=== PATIENT | female | born 1940 | race Caucasian/White ===

== ENCOUNTER 2017-05-14 18:44 | Inpatient (IN) | payer MEDICARE ==
[~2017-05-14] VITALS: Ht 165.1 cm; Wt 67.5 kg
[~2017-05-14 18:44] MED LIST: AMLO2.5T PO; DICL50TA3 PO; IBUP-1129; LEVO112T2 PO; LOSA100T PO; MULTTAB67 PO; NEUR400C PO; PANT40TA3 PO; TYLE325T PO; VITA500T4 PO
[2017-05-14] MEDS ORDERED: IOHEXOL 350 MG/ML 10 ML VIAL (for RAD DIAG) IVCONTRAST ONE (18:45)
[2017-05-14 18:46] VITALS: BP 136/69; PULSE 87; RESP 18; TEMP 98.7; O2SAT 99
[2017-05-14] MEDS ORDERED: SODIUM CHLOR 0.9% 1000 ML INJ 1,000 ML IV SCH (19:16)
--- NOTE | 2017-05-14 19:20 | PD ---
HPI Chief Complaint: Abdominal Pain Time Seen by Provider: 19:08 Travel History International Travel<30 days: No Contact w/Intl Traveler<30days: No Traveled to known affect area: No History of Present Illness HPI 76-year-old female here for evaluation of abdominal pain. The patient reports frequent episodes of abdominal pain over the last several days. When she woke up this morning she had severe diffuse abdominal pain that is now located mainly on her right upper and right lower abdomen. She is unable to qualify the pain, and states that it is currently 7 out of 10, constant, worse with movement and palpation. She denies nausea or vomiting. She has had some loose bowel movements have been brown, no melena or hematochezia. She denies fevers or chills. No history of abdominal surgeries. No urinary symptoms. No chest pain. PFSH Past Medical History ?: Not Social History Tobacco Use: No Allergies-Medications (Allergen,Severity, Reaction): Coded Allergies: Sulfa (Sulfonamide Antibiotics) (Verified Allergy, Severe, HIVES, 05/14/17 ) Reported Meds & Prescriptions Reported Meds & Active Scripts Active Neurontin (Gabapentin) 400 Mg Cap 400 Mg PO TID Reported Multiple Vitamin 1 Tab 1 Tab PO DAILY Motrin Ib (Ibuprofen) 200 Mg Tablet Tylenol (Acetaminophen) 325 Mg Tab 650 Mg PO Q6H PRN Vitamin B-12 (Cyanocobalamin) 500 Mcg Tab 500 Mcg PO BID Levothyroxine (Levothyroxine Sodium) 112 Mcg Tab 112 Mcg PO DAILY Losartan (Losartan Potassium) 100 Mg Tab 100 Mg PO DAILY Diclofenac Sodium DR (Diclofenac Sodium) 50 Mg Tabdr 50 Mg PO BID Pantoprazole (Pantoprazole Sodium) 40 Mg Tab 40 Mg PO DAILY Amlodipine (Amlodipine Besylate) 2.5 Mg Tab 2.5 Mg PO DAILY Review of Systems Except as stated in HPI: all other systems reviewed are Neg Physical Exam Narrative GENERAL: Well-developed, well-nourished, pleasant, no apparent distress. SKIN: Focused skin assessment warm/dry. No rash. HEAD: Atraumatic. Normocephalic. EYES: Pupils equal and round. No scleral icterus. No injection or drainage. ENT: Mucous membranes pink and moist. NECK: Trachea midline. No JVD. CARDIOVASCULAR: Regular rate and rhythm. RESPIRATORY: No accessory muscle use. Clear to auscultation. Breath sounds equal bilaterally. GASTROINTESTINAL: Abdomen soft, nondistended. On her right upper quadrant tenderness with Mcdonald sign. There is also moderate right lower quadrant tenderness. The rest of her abdomen is mildly tender. No peritoneal signs. Normal bowel sounds. No hernias. MUSCULOSKELETAL: No obvious deformities. No clubbing. No cyanosis. No edema. Mild right CVA tenderness. No left CVA tenderness. NEUROLOGICAL: Awake and alert. No obvious cranial nerve deficits. Motor grossly within normal limits. Normal speech. PSYCHIATRIC: Appropriate mood and affect; insight and judgment normal. Data Data Last Documented VS Vital Signs Date Time Temp Pulse Resp B/P (MAP) Pulse Ox O2 Delivery O2 Flow Rate FiO2 05/14/17 19:41 16 97 Room Air 05/14/17 18:46 98.7 87 Orders Orders Complete Blood Count With Diff (05/14/17 19:16) Comprehensive Metabolic Panel (05/14/17 19:16) Lipase (05/14/17 19:16) Lactic Acid (05/14/17 19:16) Prothrombin Time / Inr (Pt) (05/14/17 19:16) Act Partial Throm Time (Ptt) (05/14/17 19:16) Urinalysis - C+S If Indicated (05/14/17 19:16) Ct Abd/Pel W Iv Contrast(Rout) (05/14/17 19:16) Iv Access Insert/Monitor (05/14/17 19:16) Ecg Monitoring (05/14/17 19:16) Oximetry (05/14/17 19:16) Morphine Inj (Morphine Inj) (05/14/17 19:30) Ondansetron Inj (Zofran Inj) (05/14/17 19:30) Sodium Chlor 0.9% 1000 Ml Inj (Ns 1000 M (05/14/17 19:16) Sodium Chloride 0.9% Flush (Ns Flush) (05/14/17 19:30) Electrocardiogram (05/14/17 19:16) Chest, Single Ap (05/14/17 ) Oral Contrast - Adult (05/14/17 19:29) Diatrizoate Liq ( Gastroobdulio Liq) (05/14/17 19:42) Morphine Inj (Morphine Inj) (05/14/17 20:45) Iohexol 350 Inj (Omnipaque 350 Inj) (05/14/17 18:45) Piperacil-Tazo 4.5 Gm Premix (Zosyn 4.5 (05/14/17 22:00) Consult General Surgery (05/14/17 ) Admit Order (Ed Use Only) (05/14/17 22:11) Labs Laboratory Tests Test 05/14/17 19:18 05/14/17 19:27 Urine Color LIGHT-YELLOW Urine Turbidity CLEAR Urine pH 7.0 Urine Specific [place] 1.006 Urine Protein NEG mg/dL Urine Glucose (UA) NEG mg/dL Urine Ketones NEG mg/dL Urine Occult Blood NEG Urine Nitrite NEG Urine Bilirubin NEG Urine Urobilinogen LESS THAN 2.0 MG/DL Urine Leukocyte Esterase NEG Urine WBC LESS THAN 1 /hpf Microscopic Urinalysis Comment CULT NOT INDICATED White Blood Count 11.4 TH/MM3 Red Blood Count 3.92 MIL/MM3 Hemoglobin 13.0 GM/DL Hematocrit 38.6 % Mean Corpuscular Volume 98.5 FL Mean Corpuscular Hemoglobin 33.3 PG Mean Corpuscular Hemoglobin Concent 33.8 % Red Cell Distribution Width 12.9 % Platelet Count 227 TH/MM3 Mean Platelet Volume 7.8 FL Neutrophils (%) (Auto) 85.5 % Lymphocytes (%) (Auto) 7.5 % Monocytes (%) (Auto) 6.6 % Eosinophils (%) (Auto) 0.2 % Basophils (%) (Auto) 0.2 % Neutrophils # (Auto) 9.7 TH/MM3 Lymphocytes # (Auto) 0.9 TH/MM3 Monocytes # (Auto) 0.7 TH/MM3 Eosinophils # (Auto) 0.0 TH/MM3 Basophils # (Auto) 0.0 TH/MM3 CBC Comment DIFF FINAL Differential Comment Prothrombin Time 10.8 SEC Prothromb Time International Ratio 1.0 RATIO Activated Partial Thromboplast Time 25.8 SEC Blood Urea Nitrogen 11 MG/DL Creatinine 0.78 MG/DL Random Glucose 110 MG/DL Total Protein 7.3 GM/DL Albumin 3.9 GM/DL Calcium Level 9.7 MG/DL Alkaline Phosphatase 53 U/L Aspartate Amino Transf (AST/SGOT) 17 U/L Alanine Aminotransferase (ALT/SGPT) 19 U/L Total Bilirubin 1.1 MG/DL Sodium Level 133 MEQ/L Potassium Level 3.8 MEQ/L Chloride Level 100 MEQ/L Carbon Dioxide Level 26.3 MEQ/L Anion Gap 7 MEQ/L Estimat Glomerular Filtration Rate 72 ML/MIN Lactic Acid Level 0.8 mmol/L Lipase 151 U/L MDM Medical Decision Making Medical Screen Exam Complete: Yes Emergency Medical Condition: Yes Interpretation(s) EKG: Sinus, rate 81, normal axis, normal intervals, no acute ischemic abnormality. Differential Diagnosis Cholecystitis, cholelithiasis, nephrolithiasis, pyelonephritis, ureterolithiasis , colitis, appendicitis, UTI, cystitis, mesenteric ischemia Narrative Course Initial vital signs show heart rate 87, blood pressure 136/69, pulse ox 99% on room air, oral temp of 98.7F. CBC: WBC 11.4, hemoglobin 13, hematocrit 38.6, platelets 227, neutrophils 85.5%. CMP is essentially unremarkable. Lactic acid is 0.8. UA is not suggestive of UTI. CT abdomen pelvis: CONCLUSION: Inflamed appearance of right lower quadrant bowel structures and surrounding tissues with differential considerations primarily include ileitis, IBD or appendicitis. Mild intra-extrahepatic biliary ductal dilatation and moderate gallbladder distention. No specific etiology identified Case discussed with on-call general surgeon Dr. Silva. He will like the patient to be started on IV antibiotics and admitted to the medical service. He will see the patient in consultation in the morning. He would like the patient to be NPO after midnight. Case discussed with hospitalist Dr. Gore who will admit the patient to her service. The patient and the patient's family were made aware of all findings and plan for admission with surgical consultation. Diagnosis Primary Impression: Right lower quadrant abdominal pain Admitting Information Admitting Physician Requests: Observation Raúl Sandoval MD May 14, 2017 19:20
[2017-05-14] MEDS ORDERED: MORPHINE SULFATE 4 MG/ML INJ IV PUSH ONE ×2 (19:30→20:45)
[2017-05-14] MEDS ORDERED: SODIUM CHLORIDE 0.9% FLUSH 10 ML FLUSH IV FLUSH PRN (19:30)
[2017-05-14] MEDS ORDERED: ONDANSETRON HCL 4 MG/2 ML VIAL IVP ONE (19:30)
[2017-05-14 19:40] LABS: AUTOMATED NEUTROPHIL # 9.7 TH/MM3 (1.8-7.7); BASOPHIL % 0.2 % (0.0-2.0); EOSINOPHIL % 0.2 % (0.0-4.0); HEMATOCRIT 38.6 % (35.0-46.0); HEMO FLAGS DIFF FINAL; LYMPH % 7.5 % (9.0-44.0); LYMPHOCYTE # 0.9 TH/MM3 (1.0-4.8); MEAN CELL VOLUME 98.5 FL (80.0-100.0); MEAN CORPUSCULAR HEMOGLOBIN 33.3 PG (27.0-34.0); MEAN CORPUSCULAR HGB CONC 33.8 % (32.0-36.0); MONO % 6.6 % (0.0-8.0); NEUT % 85.5 % (16.0-70.0); PLATELET COUNT 227 TH/MM3 (150-450); RED BLOOD COUNT 3.92 MIL/MM3 (4.00-5.30); RED CELL DISTRIBUTION WIDTH 12.9 % (11.6-17.2); WHITE BLOOD COUNT 11.4 TH/MM3 (4.0-11.0)
[2017-05-14 19:41] VITALS: RESP 16; O2SAT 97
[2017-05-14] MEDS ORDERED: DIATRIZOATE MEGLUM/DIATRIZOATE SOD 9 ML CUP ONE (19:42)
[2017-05-14 19:44] LABS: BLOOD, URINE NEG (NEG); GLUCOSE,URINE NEG (NEG); KETONE, URINE NEG (NEG); NITRITE,URINE NEG (NEG); URINE COLOR LIGHT-YELLOW (YELLW/STRAW)
[2017-05-14 19:49] LABS: APTT (PATIENT) 25.8 SEC (24.3-30.1); PROTHROMBIN TIME - PATIENT 10.8 SEC (9.8-11.6)
[2017-05-14 19:51] LABS: COMMENT (UR) CULT NOT INDICATED; CULTURE IF INDICATED CULT NOT INDICATED
[2017-05-14 20:11] LABS: ANION GAP 7 MEQ/L (5-15); BICARBONATE 26.3 MEQ/L (21.0-32.0); BLOOD UREA NITROGEN 11 MG/DL (7-18); CHLORIDE 100 MEQ/L (98-107); GLOMERULAR FILTRATION RATE 72 ML/MIN (>89); POTASSIUM 3.8 MEQ/L (3.5-5.1); SODIUM (NA) 133 MEQ/L (136-145)
[2017-05-14 20:13] LABS: ALT (GPT) 19 U/L (10-53); AST (GOT) 17 U/L (15-37)
[2017-05-14 20:15] LABS: ALKALINE PHOSPHATASE 53 U/L (45-117); TOTAL BILIRUBIN ADULT 1.1 MG/DL (0.2-1.0)
--- NOTE | 2017-05-14 21:25 | RADRPT ---
EXAM DATE/TIME: 05/14/2017 19:37 [facility] COMPARISON: No previous studies available for comparison. INDICATIONS : Chest pain and shortness of breath. MEDICAL HISTORY : None. SURGICAL HISTORY : None. ENCOUNTER: Initial ACUITY: 2 days PAIN SCORE: 10/10 LOCATION: Right chest FINDINGS: A single view of the chest demonstrates the lungs to be symmetrically aerated without evidence of mas s, infiltrate or effusion. The cardiomediastinal contours are unremarkable. Osseous structures are intact. CONCLUSION: No acute disease. Damaso Ragsdale MD on May 14, 2017 at 21:23 Board Certified Radiologist. This report was verified electronically.
--- NOTE | 2017-05-14 21:51 | RADRPT ---
EXAM DATE/TIME: 05/14/2017 20:42 This report includes an Addendum and supersedes previous reports for this exam. [facility] COMPARISON: No previous studies available for comparison. INDICATIONS : Right sided abdomen pain. IV CONTRAST: 95 cc Omnipaque 350 (iohexol) IV ORAL CONTRAST: No oral contrast ingested. RADIATION DOSE: 5.53 CTDIvol (mGy) MEDICAL HISTORY : Hypertension. Gastroesophageal reflux disease. SURGICAL HISTORY : None. ENCOUNTER: Initial ACUITY: 1 day PAIN SCALE: 7/10 LOCATION: Right abdomen TECHNIQUE: Volumetric scanning of the abdomen and pelvis was performed. Using automated exposure control and ad justment of the mA and/or kV according to patient size, radiation dose was kept as low as reasonably achievable to obtain optimal diagnostic quality images. DICOM format image data is available electro nically for review and comparison. FINDINGS: LOWER LUNGS: Mild basilar atelectasis LIVER: Mild intra-and extrahepatic biliary ductal dilatation. Pancreatic duct is prominent. Mild dilatation continues down to the level of the ampulla. No definite mass is identified. No definite filling defec t is identified. The gallbladder is moderately distended. There are tiny dependent stones in the gall bladder fundus. No definite gallbladder wall thickening. There is no focal liver mass identified. SPLEEN: Cyst in the anterior aspect of the spleen. PANCREAS: Mildly dilated duct throughout. No definite mass. KIDNEYS: Normal in size and shape. There is no mass, stone or hydronephrosis. ADRENAL GLANDS: Within normal limits. VASCULAR: Circumaortic renal vein on the left. No evidence of aortic aneurysm or major vessel occlusion. BOWEL/MESENTERY: Abnormal increased mucosal enhancement and induration surrounding bowel structures in the right lower quadrant, appearing to mainly involve distal ileal loops. Involvement of the appendix in this region is not excluded. The appearance is nonspecific as to appendicitis versus ileitis or IBD. No definite evidence of abscess, perforation or obstruction at present. ABDOMINAL WALL: Within normal limits. RETROPERITONEUM: There is no lymphadenopathy. BLADDER: No wall thickening or mass. REPRODUCTIVE: Within normal limits. INGUINAL: There is no lymphadenopathy or hernia. MUSCULOSKELETAL: Nothing acute CONCLUSION: Inflamed appearance of right lower quadrant bowel structures and surrounding tissues with differentia l considerations primarily include ileitis, IBD or appendicitis. Mild intra-extrahepatic biliary ductal dilatation and moderate gallbladder distention. No specific et iology identified Damaso Ragsdale MD on May 14, 2017 at 21:39 Board Certified Radiologist. This report was verified electronically. ADDENDUM: Delayed imaging was obtained. The inflammatory structure in the right lower quadrant appear s to be confined to the ileum. There is residual contrast within a tubular structure believed to be t he appendix and not involved with inflammatory process. Sal Morton MD on May 15, 2017 at 1:23 Board Certified Radiologist. This report was verified electronically.
[2017-05-14] MEDS ORDERED: PIPERACIL-TAZO 4.5 GM PREMIX 100 ML IV ONE (22:00)
[2017-05-14] MEDS ORDERED: SENNOSIDES 8.6 MG TAB PO PRN (22:15)
[2017-05-14] MEDS ORDERED: BISACODYL 10 MG SUPP RECTAL PRN (22:15)
[2017-05-14] MEDS ORDERED: LACTULOSE SYRUP 20 GM/30 ML CUP PO PRN (22:15)
[2017-05-14] MEDS ORDERED: ACETAMINOPHEN 325 MG TAB PO PRN (22:15)
[2017-05-14] MEDS ORDERED: MAGNESIUM HYDROXIDE SUSP 30 ML CUP PO PRN (22:15)
--- NOTE | 2017-05-14 22:15 | HHI.HP ---
[facility] Service [facility] Primary Care Physician CORY Alexander Admission Diagnosis abdominal pain rule out appendicitis Diagnoses: Travel History International Travel<30 Days: No Contact w/Intl Traveler <30 Da: No Traveled to Known Affected Are: No Past Family Social History Allergies: Coded Allergies: Sulfa (Sulfonamide Antibiotics) (Verified Allergy, Severe, HIVES, 05/14/17 ) Physical Exam Vital Signs Vital Signs Date Time Temp Pulse Resp B/P (MAP) Pulse Ox O2 Delivery O2 Flow Rate FiO2 05/14/17 19:41 16 97 Room Air 05/14/17 18:46 98.7 87 18 136/69 (91) 99 Room Air Physical Exam GENERAL: This is a well-nourished, well-developed patient, in no apparent distress. SKIN: No rashes, ecchymoses or lesions. Cool and dry. HEAD: Atraumatic. Normocephalic. No temporal or scalp tenderness. EYES: Pupils equal round and reactive. Extraocular motions intact. No scleral icterus. No injection or drainage. ENT: Nose without bleeding, purulent drainage or septal hematoma. Throat without erythema, tonsillar hypertrophy or exudate. Uvula midline. Airway patent. NECK: Trachea midline. No JVD or lymphadenopathy. Supple, nontender, no meningeal signs. CARDIOVASCULAR: Regular rate and rhythm without murmurs, gallops, or rubs. RESPIRATORY: Clear to auscultation. Breath sounds equal bilaterally. No wheezes , rales, or rhonchi. GASTROINTESTINAL: Abdomen soft, non-tender, nondistended. No hepato-splenomegaly , or palpable masses. No guarding. MUSCULOSKELETAL: Extremities without clubbing, cyanosis, or edema. No joint tenderness, effusion, or edema noted. No calf tenderness. Negative Homans sign bilaterally. NEUROLOGICAL: Awake and alert. Cranial nerves II through XII intact. Motor and sensory grossly within normal limits. Five out of 5 muscle strength in all muscle groups. Normal speech. Laboratory Laboratory Tests Test 05/14/17 19:18 05/14/17 19:27 Urine Color LIGHT-YELLOW Urine Turbidity CLEAR Urine pH 7.0 Urine Specific [place] 1.006 Urine Protein NEG Urine Glucose (UA) NEG Urine Ketones NEG Urine Occult Blood NEG Urine Nitrite NEG Urine Bilirubin NEG Urine Urobilinogen LESS THAN 2.0 Urine Leukocyte Esterase NEG Urine WBC LESS THAN 1 Microscopic Urinalysis Comment CULT NOT INDICATED White Blood Count 11.4 Red Blood Count 3.92 Hemoglobin 13.0 Hematocrit 38.6 Mean Corpuscular Volume 98.5 Mean Corpuscular Hemoglobin 33.3 Mean Corpuscular Hemoglobin Concent 33.8 Red Cell Distribution Width 12.9 Platelet Count 227 Mean Platelet Volume 7.8 Neutrophils (%) (Auto) 85.5 Lymphocytes (%) (Auto) 7.5 Monocytes (%) (Auto) 6.6 Eosinophils (%) (Auto) 0.2 Basophils (%) (Auto) 0.2 Neutrophils # (Auto) 9.7 Lymphocytes # (Auto) 0.9 Monocytes # (Auto) 0.7 Eosinophils # (Auto) 0.0 Basophils # (Auto) 0.0 CBC Comment DIFF FINAL Differential Comment Prothrombin Time 10.8 Prothromb Time International Ratio 1.0 Activated Partial Thromboplast Time 25.8 Blood Urea Nitrogen 11 Creatinine 0.78 Random Glucose 110 Total Protein 7.3 Albumin 3.9 Calcium Level 9.7 Alkaline Phosphatase 53 Aspartate Amino Transf (AST/SGOT) 17 Alanine Aminotransferase (ALT/SGPT) 19 Total Bilirubin 1.1 Sodium Level 133 Potassium Level 3.8 Chloride Level 100 Carbon Dioxide Level 26.3 Anion Gap 7 Estimat Glomerular Filtration Rate 72 Lactic Acid Level 0.8 Lipase 151 Result Diagram: 05/14/17192605/14/171926 Caprini VTE Risk Assessment Caprini Risk Assessment Model Point Value = 1 Point Value = 2 Point Value = 3 Point Value = 5 Age 41-60 Minor surgery BMI > 25 kg/m2 Swollen legs Varicose veins or History of unexplained or recurrent spontaneous Oral contraceptives or hormone replacement Sepsis (< 1 month) Serious lung disease, including pneumonia (< 1 month) Abnormal pulmonary function Acute myocardial infarction Congestive heart failure (< 1 month) History of inflammatory bowel disease Medical patient at bed rest Age 61-74 Arthroscopic surgery Major open surgery (> 45 min) Laparoscopic surgery (> 45 min) Malignancy Confined to bed (> 72 hours) Immobilizing plaster cast Central venous access Age >= 75 History of VTE Family history of VTE Factor V Leiden Prothrombin [id number] Lupus anticoagulant Anticardiolipin antibodies Elevated serum homocysteine Heparin-induced thrombocytopenia Other congenital or acquired thrombophilia Stroke (< 1 month) Elective arthroplasty Hip, pelvis, or leg fracture Acute spinal cord injury (< 1 month) Prophylaxis Regimen Total Risk Factor Score Risk Level Prophylaxis Regimen 0-1 Low Early ambulation 2 Moderate Order ONE of the following: *Sequential Compression Device (SCD) *Heparin 5000 units SQ BID 3-4 Higher Order ONE of the following medications: *Heparin 5000 units SQ TID *Enoxaparin/Lovenox 40 mg SQ daily (WT < 150 kg, CrCl > 30 mL/min) *Enoxaparin/Lovenox 30 mg SQ daily (WT < 150 kg, CrCl > 10-29 mL/min) *Enoxaparin/Lovenox 30 mg SQ BID (WT < 150 kg, CrCl > 30 mL/min) AND/OR *Sequential Compression Device (SCD) 5 or more Highest Order ONE of the following medications: *Heparin 5000 units SQ TID (Preferred with Epidurals) *Enoxaparin/Lovenox 40 mg SQ daily (WT < 150 kg, CrCl > 30 mL/min) *Enoxaparin/Lovenox 30 mg SQ daily (WT < 150 kg, CrCl > 10-29 mL/min) *Enoxaparin/Lovenox 30 mg SQ BID (WT < 150 kg, CrCl > 30 mL/min) AND *Sequential Compression Device (SCD) Physician Certification Order for Inpatient Services The services are ordered in accordance with Medicare regulations or non- Medicare payer requirements, as applicable. In the case of services not specified as inpatient-only, they are appropriately provided as inpatient services in accordance with the 2-midnight benchmark. days is the estimated time the patient will need to remain in the hospital, assuming treatment plan goals are met and no additional complications. Mary Jane Gore MD May 14, 2017 22:15
[2017-05-14 22:26] VITALS: BP 135/62; PULSE 89; RESP 18; O2SAT 98
--- NOTE | 2017-05-14 22:38 | HHI.HP ---
HPI Service [facility] Primary Care Physician CORY Alexander Admission Diagnosis abdominal pain rule out appendicitis Diagnoses: (1) Ileitis Diagnosis: Principal (2) Dehydration Diagnosis: Principal (3) HTN (hypertension) Diagnosis: Principal Travel History International Travel<30 Days: No Contact w/Intl Traveler <30 Da: No Traveled to Known Affected Are: No History of Present Illness This is a 76-year-old female with a PMH of HTN and Hypothyroidism was brought to the ER by family secondary to complaints of abdominal pain or any earlier this morning. States pain located in RUQ and RLQ, associated w/ nausea but no vomiting. Has had few episodes of diarrhea, now resolved. Pt severe w/ movement, ambulation very difficult due to pain. Denies fever or chills. On arrival, BP 136/69, HR 87, O2 sat 99% on RA, Afebrile. WBC 11.4. Chemistry unremarkable except for GFR 72. Lactic Acid normal. 0.0. CXR with no acute findings. CT Abd/Pelvis w/ inflamed appearance right lower quadrant bowel structures and surrounding tissue with differential including ileitis, IBD or appendicitis. Mild intra-and extrahepatic biliary ductal dilatation and moderate gallbladder distention. Dr. Silva consulted by ER physician, plan is for observation and IV Abx, will eval in am, no surgical intervention planned at this time. S/p Zosyn in ER. Review of Systems Except as stated in HPI: all other systems reviewed are Neg ROS: 14 point review of systems otherwise negative. Past Family Social History Past Medical History PMH: HTN and Hypothyroidism Past Surgical History PAST SURGICAL HISTORY: Left Shoulder Surgery Allergies: Coded Allergies: Sulfa (Sulfonamide Antibiotics) (Verified Allergy, Severe, HIVES, 05/14/17 ) Family History PAST FAMILY HISTORY: Reviewed. No h/o DM or CAD Social History PAST SOCIAL HISTORY: Negative for alcohol, tobacco or drugs. Physical Exam Vital Signs Vital Signs Date Time Temp Pulse Resp B/P (MAP) Pulse Ox O2 Delivery O2 Flow Rate FiO2 05/14/17 22:26 89 18 135/62 (86) 98 Room Air 05/14/17 19:41 16 97 Room Air 05/14/17 18:46 98.7 87 18 136/69 (91) 99 Room Air Physical Exam PE: GENERAL: Very pleasant elderly white female in no acute distress. Family at bedside. HEENT: PERRLA, EOMI. No scleral icterus or conjunctival pallor. No lid lag or facial droop. CARDIOVASCULAR: Regular rate and rhythm. No obvious murmurs to auscultation. No chest tenderness to palpation. RESPIRATORY: No obvious rhonchi or wheezing. Clear to auscultation. Breath sounds equal bilaterally. GASTROINTESTINAL: Abdomen soft, significant RLQ and RUQ tenderness to palpation , nondistended. BS normal. MUSCULOSKELETAL: Extremities without clubbing, cyanosis, or edema. No obvious deformities. NEUROLOGICAL: Awake, alert and oriented x4. No focal neurologic deficits. Moving both upper and lower extremities spontaneously. Laboratory Laboratory Tests Test 05/14/17 19:18 05/14/17 19:27 Urine Color LIGHT-YELLOW Urine Turbidity CLEAR Urine pH 7.0 Urine Specific [place] 1.006 Urine Protein NEG Urine Glucose (UA) NEG Urine Ketones NEG Urine Occult Blood NEG Urine Nitrite NEG Urine Bilirubin NEG Urine Urobilinogen LESS THAN 2.0 Urine Leukocyte Esterase NEG Urine WBC LESS THAN 1 Microscopic Urinalysis Comment CULT NOT INDICATED White Blood Count 11.4 Red Blood Count 3.92 Hemoglobin 13.0 Hematocrit 38.6 Mean Corpuscular Volume 98.5 Mean Corpuscular Hemoglobin 33.3 Mean Corpuscular Hemoglobin Concent 33.8 Red Cell Distribution Width 12.9 Platelet Count 227 Mean Platelet Volume 7.8 Neutrophils (%) (Auto) 85.5 Lymphocytes (%) (Auto) 7.5 Monocytes (%) (Auto) 6.6 Eosinophils (%) (Auto) 0.2 Basophils (%) (Auto) 0.2 Neutrophils # (Auto) 9.7 Lymphocytes # (Auto) 0.9 Monocytes # (Auto) 0.7 Eosinophils # (Auto) 0.0 Basophils # (Auto) 0.0 CBC Comment DIFF FINAL Differential Comment Prothrombin Time 10.8 Prothromb Time International Ratio 1.0 Activated Partial Thromboplast Time 25.8 Blood Urea Nitrogen 11 Creatinine 0.78 Random Glucose 110 Total Protein 7.3 Albumin 3.9 Calcium Level 9.7 Alkaline Phosphatase 53 Aspartate Amino Transf (AST/SGOT) 17 Alanine Aminotransferase (ALT/SGPT) 19 Total Bilirubin 1.1 Sodium Level 133 Potassium Level 3.8 Chloride Level 100 Carbon Dioxide Level 26.3 Anion Gap 7 Estimat Glomerular Filtration Rate 72 Lactic Acid Level 0.8 Lipase 151 Result Diagram: 05/14/17192605/14/171926 Rufus VTE Risk Assessment Rufus VTE Risk Assessment: No/Low Risk (score <= 1) Caprini Risk Assessment Model Point Value = 1 Point Value = 2 Point Value = 3 Point Value = 5 Age 41-60 Minor surgery BMI > 25 kg/m2 Swollen legs Varicose veins or History of unexplained or recurrent spontaneous Oral contraceptives or hormone replacement Sepsis (< 1 month) Serious lung disease, including pneumonia (< 1 month) Abnormal pulmonary function Acute myocardial infarction Congestive heart failure (< 1 month) History of inflammatory bowel disease Medical patient at bed rest Age 61-74 Arthroscopic surgery Major open surgery (> 45 min) Laparoscopic surgery (> 45 min) Malignancy Confined to bed (> 72 hours) Immobilizing plaster cast Central venous access Age >= 75 History of VTE Family history of VTE Factor V Leiden Prothrombin [id number] Lupus anticoagulant Anticardiolipin antibodies Elevated serum homocysteine Heparin-induced thrombocytopenia Other congenital or acquired thrombophilia Stroke (< 1 month) Elective arthroplasty Hip, pelvis, or leg fracture Acute spinal cord injury (< 1 month) Prophylaxis Regimen Total Risk Factor Score Risk Level Prophylaxis Regimen 0-1 Low Early ambulation 2 Moderate Order ONE of the following: *Sequential Compression Device (SCD) *Heparin 5000 units SQ BID 3-4 Higher Order ONE of the following medications: *Heparin 5000 units SQ TID *Enoxaparin/Lovenox 40 mg SQ daily (WT < 150 kg, CrCl > 30 mL/min) *Enoxaparin/Lovenox 30 mg SQ daily (WT < 150 kg, CrCl > 10-29 mL/min) *Enoxaparin/Lovenox 30 mg SQ BID (WT < 150 kg, CrCl > 30 mL/min) AND/OR *Sequential Compression Device (SCD) 5 or more Highest Order ONE of the following medications: *Heparin 5000 units SQ TID (Preferred with Epidurals) *Enoxaparin/Lovenox 40 mg SQ daily (WT < 150 kg, CrCl > 30 mL/min) *Enoxaparin/Lovenox 30 mg SQ daily (WT < 150 kg, CrCl > 10-29 mL/min) *Enoxaparin/Lovenox 30 mg SQ BID (WT < 150 kg, CrCl > 30 mL/min) AND *Sequential Compression Device (SCD) Assessment and Plan Problem List: (1) Ileitis ICD Code: K52.9 - Noninfective gastroenteritis and colitis, unspecified (2) Dehydration ICD Code: E86.0 - Dehydration (3) HTN (hypertension) ICD Code: I10 - Essential (primary) hypertension Assessment and Plan A/P: 1. Ileitis: c/o acute onset of RUQ and RLQ pain w/ associated nausea and occasional diarrhea, now resolved. Afebrile. WBC 11. CT Abd/Pelvis w/ inflammation RLQ w/ differential for ileitis, IBD or appendicitis, mild intra- extrahepatic biliary ductal dilation and moderate gallbladder distention, images reviewed by me. Dr. Silva consulted by ER physician, recommended IV Abx, will eval in am, no surgical intervention planned at this time. Clear liquids, IVF, analgesics/antiemetics as needed. S/p Zosyn, continue IV Abx. 2. Dehydration: GFR 72, BUN/Creat normal, U/a negative, IVF for hydration, repeat labs in am. 3. HTN: Controlled. Resume home medications, monitor BP 4. DVT Prophylaxis: SCD/Teds. 5. Social work for d/c planning as needed. 6. Case discussed w/ ER physician at length. Mary Jane Gore MD May 14, 2017 22:38
[2017-05-14] MEDS ORDERED: HYDROmorphone HCL PF 0.5 MG/0.5 ML SYRINGE IV PUSH ONE (22:45)
[2017-05-14] MEDS: SODIUM CHLORIDE 0.9% FLUSH 10 ML FLUSH IV FLUSH PRN (23:26)
[2017-05-14] MEDS: SODIUM CHLOR 0.9% 1000 ML INJ 1,000 ML IV SCH (23:26)
[2017-05-14 23:41] VITALS: BP 125/58; PULSE 88; RESP 17; TEMP 98.5; O2SAT 97
--- NOTE | 2017-05-15 00:13 | PD.CONS ---
HPI Service General Surgery Consult Requested By Dr. Sandoval Reason for Consult abdominal pain possible appendicitis Primary Care Physician CORY Alexander History of Present Illness 76 yo F presents with <24 h of abdominal pain. She states this pain is severe and located in the right side of the abdomen, more mid and upper. Earlier it was more diffuse. + nausea but no vomiting. Many abdominal symptoms over months to years including alternating constipation and diarrhea, epigastric pressure, nausea, belching, lower abdominal pain. She says that some symptoms have been going on for 15-20 yrs but worse last 6-8 months. She denies weight loss and actually has gained some weight. Despite symptoms she says she eats well. No previous abdominal surgeries. She was evaluated in the emergency department and noted to have right sided tenderness and leukocytosis. A CT of the abdomen and pelvis with IV and oral contrast was obtained and there was noted to be inflammation in the right lower quadrant in the region of the terminal ileum with differential including ileitis, IBD, and appendicitis. Review of Systems Constitutional: DENIES: Fever, Chills Eyes: DENIES: Eye inflammation, Eye pain Ears, nose, mouth, throat: DENIES: Oral lesions, Throat pain Cardiovascular: DENIES: Chest pain, Palpitations Gastrointestinal: COMPLAINS OF: Abdominal pain, DENIES: Vomiting Integumentary: DENIES: Pruritus, Rash Neurologic: DENIES: Seizures, Speech Problems Past Family Social History Past Medical History Hypertension Hypothyroidism Past Surgical History Shoulder surgery Reported Medications Reported Meds & Active Scripts Active Neurontin (Gabapentin) 400 Mg Cap 400 Mg PO TID Reported Multiple Vitamin 1 Tab 1 Tab PO DAILY Motrin Ib (Ibuprofen) 200 Mg Tablet Tylenol (Acetaminophen) 325 Mg Tab 650 Mg PO Q6H PRN Vitamin B-12 (Cyanocobalamin) 500 Mcg Tab 500 Mcg PO BID Levothyroxine (Levothyroxine Sodium) 112 Mcg Tab 112 Mcg PO DAILY Losartan (Losartan Potassium) 100 Mg Tab 100 Mg PO DAILY Diclofenac Sodium DR (Diclofenac Sodium) 50 Mg Tabdr 50 Mg PO BID Pantoprazole (Pantoprazole Sodium) 40 Mg Tab 40 Mg PO DAILY Amlodipine (Amlodipine Besylate) 2.5 Mg Tab 2.5 Mg PO DAILY Allergies: Coded Allergies: Sulfa (Sulfonamide Antibiotics) (Verified Allergy, Severe, HIVES, 05/14/17 ) Active Ordered Medications Current Medications Medications (Trade) Dose Ordered Sig/Josiah Route Start Time Stop Time Status Last Admin Piperacillin Sod/ Tazobactam Sod 100 ml @ 200 mls/hr Q6H IV 05/15/17 04:00 Sodium Chloride 1,000 ml @ 100 mls/hr Q10H IV 05/14/17 22:13 05/14/17 23:26 (NS Flush) 2 ml UNSCH PRN IV FLUSH 05/14/17 22:15 05/14/17 23:26 (NS Flush) 2 ml BID IV FLUSH 05/15/17 09:00 (Zofran Inj) 4 mg Q6H PRN IVP 05/14/17 22:15 (Tylenol) 650 mg Q6H PRN PO 05/14/17 22:15 (Andrews 5-325 Mg) 1 tab Q4H PRN PO 05/14/17 22:15 (Morphine Inj) 2 mg Q3H PRN IV PUSH 05/14/17 22:15 (Wendi-Colace) 1 tab BID PO 05/15/17 09:00 (Milk Of Magnesia Liq) 30 ml Q12H PRN PO 05/14/17 22:15 (Senokot) 17.2 mg Q12H PRN PO 05/14/17 22:15 (Dulcolax Supp) 10 mg DAILY PRN RECTAL 05/14/17 22:15 (Lactulose Liq) 30 ml DAILY PRN PO 05/14/17 22:15 Family History Noncontributory Social History No alcohol tobacco or drug use Physical Exam Vital Signs Vital Signs Date Time Temp Pulse Resp B/P (MAP) Pulse Ox O2 Delivery O2 Flow Rate FiO2 05/14/17 23:41 98.5 88 17 125/58 (80) 97 05/14/17 23:08 05/14/17 22:26 89 18 135/62 (86) 98 Room Air 05/14/17 19:41 16 97 Room Air 05/14/17 18:46 98.7 87 18 136/69 (91) 99 Room Air Physical Exam GENERAL: Awake and alert. No acute distress. Cooperative. Thin and frail. Appears somewhat older than her stated age. HEAD: Normocephalic. Atraumatic. EYES: Pupils equal round and reactive to light bilaterally. No scleral icterus. CHEST: Lungs clear to auscultation bilaterally with no wheezing or rhonchi. No respiratory distress. CARDIOVASCULAR: Regular rate and rhythm. ABDOMEN: Mild distention. Soft. Moderate tenderness in the right lateral abdomen. No guarding. EXTREMITIES: No cyanosis or edema. SKIN: Warm, dry, nonjaundiced. Laboratory Laboratory Tests Test 05/14/17 19:18 05/14/17 19:27 Urine Color LIGHT-YELLOW Urine Turbidity CLEAR Urine pH 7.0 Urine Specific [place] 1.006 Urine Protein NEG Urine Glucose (UA) NEG Urine Ketones NEG Urine Occult Blood NEG Urine Nitrite NEG Urine Bilirubin NEG Urine Urobilinogen LESS THAN 2.0 Urine Leukocyte Esterase NEG Urine WBC LESS THAN 1 Microscopic Urinalysis Comment CULT NOT INDICATED White Blood Count 11.4 Red Blood Count 3.92 Hemoglobin 13.0 Hematocrit 38.6 Mean Corpuscular Volume 98.5 Mean Corpuscular Hemoglobin 33.3 Mean Corpuscular Hemoglobin Concent 33.8 Red Cell Distribution Width 12.9 Platelet Count 227 Mean Platelet Volume 7.8 Neutrophils (%) (Auto) 85.5 Lymphocytes (%) (Auto) 7.5 Monocytes (%) (Auto) 6.6 Eosinophils (%) (Auto) 0.2 Basophils (%) (Auto) 0.2 Neutrophils # (Auto) 9.7 Lymphocytes # (Auto) 0.9 Monocytes # (Auto) 0.7 Eosinophils # (Auto) 0.0 Basophils # (Auto) 0.0 CBC Comment DIFF FINAL Differential Comment Prothrombin Time 10.8 Prothromb Time International Ratio 1.0 Activated Partial Thromboplast Time 25.8 Blood Urea Nitrogen 11 Creatinine 0.78 Random Glucose 110 Total Protein 7.3 Albumin 3.9 Calcium Level 9.7 Alkaline Phosphatase 53 Aspartate Amino Transf (AST/SGOT) 17 Alanine Aminotransferase (ALT/SGPT) 19 Total Bilirubin 1.1 Sodium Level 133 Potassium Level 3.8 Chloride Level 100 Carbon Dioxide Level 26.3 Anion Gap 7 Estimat Glomerular Filtration Rate 72 Lactic Acid Level 0.8 Lipase 151 Result Diagram: 05/14/17192605/14/171926 Imaging Last Impressions Abdomen/Pelvis CT 05/14/171915 Signed Impressions: Service Date/Time: Sunday, May 14, 2017 20:42 - CONCLUSION: Inflamed appearance of right lower quadrant bowel structures and surrounding tissues with differential considerations primarily include ileitis, IBD or appendicitis. Mild intra-extrahepatic biliary ductal dilatation and moderate gallbladder distention. No specific etiology identified Damaso Ragsdale MD ADDENDUM: Delayed imaging was obtained. The inflammatory structure in the right lower quadrant appears to be confined to the ileum. There is residual contrast within a tubular structure believed to be the appendix and not involved with inflammatory process. Sal Morton MD Chest X-Ray 05/14/17 0000 Signed Impressions: Service Date/Time: Sunday, May 14, 2017 19:37 - CONCLUSION: No acute disease. Damaso Ragsdale MD Assessment and Plan Assessment and Plan 76 yo F with less than 24 hours of acute abdominal pain. She has a more long- standing history of multiple gastrointestinal symptoms. Based on evaluation and the CT scan differential diagnosis includes appendicitis vs ileitis versus inflammatory bowel disease. I reviewed the CT images. Discussed the case in detail with Dr. Sandoval. Repeat CT so oral contrast will have reached IC valve/appendix. Will re-evaluate in am. May require laparoscopy possible appendectomy. Recommend IV antibiotics and nothing by mouth status. Ricky Silva MD May 15, 2017 00:13
[2017-05-15] MEDS: ONDANSETRON HCL 4 MG/2 ML VIAL IVP PRN ×2 (02:22→17:13)
[2017-05-15] MEDS: SODIUM CHLORIDE 0.9% FLUSH 10 ML FLUSH IV FLUSH PRN (02:23)
[2017-05-15] MEDS: MORPHINE SULFATE 4 MG/ML INJ IV PUSH PRN ×3 (02:23→23:16)
[2017-05-15 03:46] VITALS: BP 109/55; PULSE 98; RESP 16; TEMP 98.4; O2SAT 99
[2017-05-15] MEDS ORDERED: PIPERACIL-TAZO 4.5 GM PREMIX 100 ML IV SCH (04:00)
[2017-05-15 07:11] VITALS: BP 123/58; PULSE 88; RESP 20; TEMP 98.6; O2SAT 96
[2017-05-15 07:21] LABS: AUTOMATED NEUTROPHIL # 7.4 TH/MM3 (1.8-7.7); BASOPHIL % 0.2 % (0.0-2.0); EOSINOPHIL % 0.1 % (0.0-4.0); HEMATOCRIT 33.6 % (35.0-46.0); HEMO FLAGS DIFF FINAL; LYMPH % 10.5 % (9.0-44.0); LYMPHOCYTE # 0.9 TH/MM3 (1.0-4.8); MEAN CELL VOLUME 99.2 FL (80.0-100.0); MEAN CORPUSCULAR HEMOGLOBIN 34.2 PG (27.0-34.0); MEAN CORPUSCULAR HGB CONC 34.5 % (32.0-36.0); MONO % 7.1 % (0.0-8.0); NEUT % 82.1 % (16.0-70.0); PLATELET COUNT 203 TH/MM3 (150-450); RED BLOOD COUNT 3.39 MIL/MM3 (4.00-5.30); RED CELL DISTRIBUTION WIDTH 13.3 % (11.6-17.2)
[2017-05-15 08:05] LABS: ALT (GPT) 25 U/L (10-53); ANION GAP 7 MEQ/L (5-15); AST (GOT) 23 U/L (15-37); BICARBONATE 27.6 MEQ/L (21.0-32.0); BLOOD UREA NITROGEN 10 MG/DL (7-18); CHLORIDE 103 MEQ/L (98-107); GLOMERULAR FILTRATION RATE 65 ML/MIN (>89); POTASSIUM 3.7 MEQ/L (3.5-5.1); SODIUM (NA) 138 MEQ/L (136-145)
[2017-05-15 08:08] LABS: ALKALINE PHOSPHATASE 57 U/L (45-117); TOTAL BILIRUBIN ADULT 1.9 MG/DL (0.2-1.0)
[2017-05-15] MEDS ORDERED: NIFEdipine 30 MG SUSTAINED RELEASE TAB PO SCH (09:00)
[2017-05-15] MEDS ORDERED: DILTIAZEM-CD 240 MG CAP ER PO SCH (09:00)
[2017-05-15] MEDS: DOCUSATE SODIUM 50 MG/SENNA 8.6 MG TAB PO SCH ×2 (09:23→21:46)
[2017-05-15] MEDS: SODIUM CHLORIDE 0.9% FLUSH 10 ML FLUSH IV FLUSH SCH ×2 (09:24→21:46)
--- NOTE | 2017-05-15 09:25 | HHI.PR ---
Subjective Subjective Notes Continues to c/o right sided pain, slightly improved. Objective Vitals/I&O Vital Signs Date Time Temp Pulse Resp B/P (MAP) Pulse Ox O2 Delivery O2 Flow Rate FiO2 05/15/17 07:11 98.6 88 20 123/58 (79) 96 05/14/17 22:26 Room Air Labs Laboratory Tests Test 05/14/17 19:18 05/14/17 19:27 05/15/17 06:00 Urine Color LIGHT-YELLOW Urine Turbidity CLEAR Urine pH 7.0 Urine Specific [place] 1.006 Urine Protein NEG Urine Glucose (UA) NEG Urine Ketones NEG Urine Occult Blood NEG Urine Nitrite NEG Urine Bilirubin NEG Urine Urobilinogen LESS THAN 2.0 Urine Leukocyte Esterase NEG Urine WBC LESS THAN 1 Microscopic Urinalysis Comment CULT NOT INDICATED White Blood Count 11.4 9.0 Red Blood Count 3.92 3.39 Hemoglobin 13.0 11.6 Hematocrit 38.6 33.6 Mean Corpuscular Volume 98.5 99.2 Mean Corpuscular Hemoglobin 33.3 34.2 Mean Corpuscular Hemoglobin Concent 33.8 34.5 Red Cell Distribution Width 12.9 13.3 Platelet Count 227 203 Mean Platelet Volume 7.8 8.3 Neutrophils (%) (Auto) 85.5 82.1 Lymphocytes (%) (Auto) 7.5 10.5 Monocytes (%) (Auto) 6.6 7.1 Eosinophils (%) (Auto) 0.2 0.1 Basophils (%) (Auto) 0.2 0.2 Neutrophils # (Auto) 9.7 7.4 Lymphocytes # (Auto) 0.9 0.9 Monocytes # (Auto) 0.7 0.6 Eosinophils # (Auto) 0.0 0.0 Basophils # (Auto) 0.0 0.0 CBC Comment DIFF FINAL DIFF FINAL Differential Comment Prothrombin Time 10.8 Prothromb Time International Ratio 1.0 Activated Partial Thromboplast Time 25.8 Blood Urea Nitrogen 11 10 Creatinine 0.78 0.86 Random Glucose 110 91 Total Protein 7.3 6.6 Albumin 3.9 3.2 Calcium Level 9.7 9.0 Alkaline Phosphatase 53 57 Aspartate Amino Transf (AST/SGOT) 17 23 Alanine Aminotransferase (ALT/SGPT) 19 25 Total Bilirubin 1.1 1.9 Sodium Level 133 138 Potassium Level 3.8 3.7 Chloride Level 100 103 Carbon Dioxide Level 26.3 27.6 Anion Gap 7 7 Estimat Glomerular Filtration Rate 72 65 Lactic Acid Level 0.8 Lipase 151 Radiology Last Impressions Abdomen/Pelvis CT 05/14/17 1916 Signed Impressions: Service Date/Time: Sunday, May 14, 2017 20:42 - CONCLUSION: Inflamed appearance of right lower quadrant bowel structures and surrounding tissues with differential considerations primarily include ileitis, IBD or appendicitis. Mild intra-extrahepatic biliary ductal dilatation and moderate gallbladder distention. No specific etiology identified Damaso Ragsdale MD ADDENDUM: Delayed imaging was obtained. The inflammatory structure in the right lower quadrant appears to be confined to the ileum. There is residual contrast within a tubular structure believed to be the appendix and not involved with inflammatory process. Sal Morton MD Chest X-Ray 05/14/17 0000 Signed Impressions: Service Date/Time: Sunday, May 14, 2017 19:37 - CONCLUSION: No acute disease. Damaso Ragsdale MD Narrative Exam No distress, thin elderly female Abd: moderate distention, moderate right sided ttp, no rebound or guarding A/P Assessment and Plan 76 yo F RLQ inflammation ? ileitis vs appendicitis and common and pancreatic ductal dilatation. Discussed with Dr. Tadeo radiology and reviewed CT scans. It appears there is inflammation of the ileum not the appendix. The bile and pancreatic ducts are dilated but no mass noted. Change antibiotics to levaquin/flagyl. Consult GI for both of these issues. No plans for operative intervention but will re- evaluate tomorrow. Ricky Silva MD May 15, 2017 09:25
[2017-05-15] MEDS: SODIUM CHLOR 0.9% 1000 ML INJ 1,000 ML IV SCH ×2 (10:48→21:45)
[2017-05-15] MEDS: LEVOFLOXACIN 750 MG PREMIX INJ 150 ML IV SCH (10:49)
[2017-05-15] MEDS ORDERED: PILL SPLITTER OTHER PRN (11:15)
[2017-05-15 11:18] VITALS: BP 131/60; PULSE 90; RESP 22; TEMP 98.5; O2SAT 97
[2017-05-15] MEDS: GABAPENTIN 400 MG CAP PO SCH ×2 (13:09→18:31)
[2017-05-15] MEDS: ACETAMINOPHEN/HYDROcodone 325 MG/5 MG TAB PO PRN (13:09)
--- NOTE | 2017-05-15 13:12 | HHI.PR ---
Subjective Remarks Follow-up for right-sided upper and lower quadrant abdominal pain. Patient is currently in pain and reports that the pain is not well controlled. No nausea or vomiting. She feels like she can tolerate some liquids. No fever or chills. Family at bedside. Objective Vitals Vital Signs Date Time Temp Pulse Resp B/P (MAP) Pulse Ox O2 Delivery O2 Flow Rate FiO2 05/15/17 11:18 98.5 90 22 131/60 (83) 97 05/15/17 07:11 98.6 88 20 123/58 (79) 96 05/15/17 03:46 98.4 98 16 109/55 (73) 99 05/14/17 23:41 98.5 88 17 125/58 (80) 97 05/14/17 23:08 05/14/17 22:26 89 18 135/62 (86) 98 Room Air 05/14/17 19:41 16 97 Room Air 05/14/17 18:46 98.7 87 18 136/69 (91) 99 Room Air I/O 05/14/17 05/14/17 05/14/17 05/15/17 05/15/17 05/15/17 07:00 15:00 23:00 07:00 15:00 23:00 Intake Total 100 ml Output Total 1000 ml 500 ml Balance -900 ml -500 ml Intake Oral 100 ml Output Urine Total 1000 ml 500 ml # Voids 4 Result Diagram: 05/15/17 0600 05/15/17 0600 Imaging Last Impressions Abdomen/Pelvis CT 05/14/17 1916 Signed Impressions: Service Date/Time: Sunday, May 14, 2017 20:42 - CONCLUSION: Inflamed appearance of right lower quadrant bowel structures and surrounding tissues with differential considerations primarily include ileitis, IBD or appendicitis. Mild intra-extrahepatic biliary ductal dilatation and moderate gallbladder distention. No specific etiology identified Damaso Ragsdale MD ADDENDUM: Delayed imaging was obtained. The inflammatory structure in the right lower quadrant appears to be confined to the ileum. There is residual contrast within a tubular structure believed to be the appendix and not involved with inflammatory process. Sal Morton MD Chest X-Ray 05/14/17 0000 Signed Impressions: Service Date/Time: Sunday, May 14, 2017 19:37 - CONCLUSION: No acute disease. Damaso Ragsdale MD Objective Remarks GENERAL: Alert, oriented 3, in mild distress. SKIN: Warm and dry. HEAD: Normocephalic. EYES: No scleral icterus. No injection or drainage. NECK: Supple, trachea midline. No JVD or lymphadenopathy. CARDIOVASCULAR: Regular rate and rhythm without murmurs, gallops, or rubs. RESPIRATORY: Breath sounds equal bilaterally. No accessory muscle use. GASTROINTESTINAL: Abdomen soft, nondistended, tender to palpation especially to the right side. MUSCULOSKELETAL: No cyanosis, or edema. BACK: Nontender without obvious deformity. No CVA tenderness. Procedures None A/P Problem List: (1) Ileitis ICD Code: K52.9 - Noninfective gastroenteritis and colitis, unspecified (2) Dehydration ICD Code: E86.0 - Dehydration (3) HTN (hypertension) ICD Code: I10 - Essential (primary) hypertension Assessment and Plan This is a 76-year-old female with a PMH of HTN and Hypothyroidism was brought to the ER by family secondary to complaints of abdominal pain or any earlier this morning. States pain located in RUQ and RLQ, associated w/ nausea but no vomiting. On arrival, BP 136/69, HR 87, O2 sat 99% on RA, Afebrile. WBC 11.4. Chemistry unremarkable except for GFR 72. - Probable ileitis - Patient has been evaluated by general surgery. GI consult pending. - No immediate surgical intervention planned at this point. - We'll continue pain medication with morphine 4 mg every 3 hours when necessary. - Continue Levaquin and Flagyl IV. - Gallbladder pathology cannot be reliably ruled out with CT abdomen pelvis. We will obtain an abdominal ultrasound. - Continue IV fluid@100 cc per hour. - Hypertension - Hypothyroidism - GERD - Continue amlodipine 2.5 mg daily, losartan 100 mg by mouth daily - Continue levothyroxine 112 g by mouth daily - Continue pantoprazole 40 mg by mouth daily. Full code. Lovenox 30mg Qday for DVT prophylaxis. Discussed with general surgery. Barb Bruno DO May 15, 2017 1:12 pm
--- NOTE | 2017-05-15 14:36 | PD.CONS ---
HPI History of Present Illness This is a 76 year old female who recently relocated from [place] last month. She reports that she woke up yesterday around 5am and had diffuse abdominal pain , worse on the right side. She reports that this was a sharp pain and was initially constant. However, she was hungry and therefore she ate some cake and coffee for breakfast. The pain then gradually lessened in intensity throughout the afternoon. However, yesterday evening, it started becoming more severe and therefore she came to the emergency room for further evaluation. She had some associated nausea without vomiting. She is not sure if she had any fevers or chills. She states that she has had "stomach issues" for the past 15- 20 years. She reports that she has intermittent nausea, bloating, reflux, and diarrhea. She had a colonoscopy about 4 years ago (unremarkable per patient). She is not sure if she has ever had an EGD. She was taking antacids for a long time, but states she was told that she was taking too many and therefore was started on Protonix in the am and ranitidine at night and she was told to stop taking the antacid. She still has some breakthrough indigestion and frequent belching, but states that it is better than it was. She has not lost any weight and states that she has gained 15 lbs in the last year. She has not seen any blood or mucous in her stools. She reports that for the past month, whenever she eats, she will get either stomach gas or start "expelling diarrhea. " She feels that with the bloating, it seems to go under her ribcage and causes some discomfort. She reports that the antacids and jayna trisha did seem to help if she could force herself to belch, but for the most part, she cannot identify any alleviating factors. She has not been on any antibiotics recently , suspicious food, or sick contacts. (Hannah Dias) PFSH Past Medical History Hypertension Hypothyroidism GERD Hiatal hernia Arthritis B12 deficiency Peripheral neuropathy Past Surgical History Left Shoulder Surgery Hemorrhoidectomy Colonoscopy (Hannah Dias) Coded Allergies: Sulfa (Sulfonamide Antibiotics) (Verified Allergy, Severe, HIVES, 05/14/17 ) Medications Allergies Coded Allergies Type Severity Reaction Last Updated Verified Sulfa (Sulfonamide Antibiotics) Allergy Severe HIVES 05/14/17 Yes Active Scripts Medications Dose Route/Sig Max Daily Dose Days Date Category Neurontin (Gabapentin) 400 Mg Cap 400 Mg PO TID 04/14/17 Rx Multiple Vitamin 1 Tab 1 Tab PO DAILY 04/14/17 Reported Motrin Ib (Ibuprofen) 200 Mg Tablet 04/14/17 Reported Tylenol (Acetaminophen) 325 Mg Tab 650 Mg PO Q6H PRN 04/14/17 Reported Vitamin B-12 (Cyanocobalamin) 500 Mcg Tab 500 Mcg PO BID 04/14/17 Reported Levothyroxine (Levothyroxine Sodium) 112 Mcg Tab 112 Mcg PO DAILY 04/14/17 Reported Losartan (Losartan Potassium) 100 Mg Tab 100 Mg PO DAILY 04/14/[address] (Diclofenac Sodium) 50 Mg Tabdr 50 Mg PO BID 04/14/17 Reported Pantoprazole (Pantoprazole Sodium) 40 Mg Tab 40 Mg PO DAILY 04/14/17 Reported Amlodipine (Amlodipine Besylate) 2.5 Mg Tab 2.5 Mg PO DAILY 04/14/17 Reported Family History Mother had breast cancer, heart disease Father had black lung Older sister had bladder cancer Brother had emphysema Brother had Alzheimers, from old age Sister had [place]/CAD Social History Denies tobacco, ETOH, illicit drug use (Hannah Dias) Review of Systems Constitutional: COMPLAINS OF: Weight gain, DENIES: Fever, Weight loss, Chills, Change in appetite Respiratory: DENIES: Cough, Shortness of breath Cardiovascular: DENIES: Chest pain Gastrointestinal: COMPLAINS OF: Abdominal pain, Diarrhea, Nausea, Swelling of Abdomen, Heartburn, DENIES: Black stools, Bloody stools, Constipation, Vomiting , Hematemesis Musculoskeletal: COMPLAINS OF: Joint pain Neurologic: DENIES: Headache Psychiatric: DENIES: Confusion (Hannah Dias) GI Exam Vitals I&O Vital Signs Date Time Temp Pulse Resp B/P (MAP) Pulse Ox O2 Delivery O2 Flow Rate FiO2 05/15/17 11:18 98.5 90 22 131/60 (83) 97 05/15/17 07:11 98.6 88 20 123/58 (79) 96 05/15/17 03:46 98.4 98 16 109/55 (73) 99 05/14/17 23:41 98.5 88 17 125/58 (80) 97 10/25/17 23:08 05/14/17 22:26 89 18 135/62 (86) 98 Room Air 05/14/17 19:41 16 97 Room Air 05/14/17 18:46 98.7 87 18 136/69 (91) 99 Room Air I/O 05/14/17 05/14/17 05/14/17 05/15/17 05/15/17 05/15/17 07:00 15:00 23:00 07:00 15:00 23:00 Intake Total 100 ml Output Total 1000 ml 500 ml Balance -900 ml -500 ml Intake Oral 100 ml Output Urine Total 1000 ml 500 ml # Voids 4 Imaging Last Impressions Abdomen/Pelvis CT 05/14/17 1916 Signed Impressions: Service Date/Time: Sunday, May 14, 2017 20:42 - CONCLUSION: Inflamed appearance of right lower quadrant bowel structures and surrounding tissues with differential considerations primarily include ileitis, IBD or appendicitis. Mild intra-extrahepatic biliary ductal dilatation and moderate gallbladder distention. No specific etiology identified Damaso Ragsdale MD ADDENDUM: Delayed imaging was obtained. The inflammatory structure in the right lower quadrant appears to be confined to the ileum. There is residual contrast within a tubular structure believed to be the appendix and not involved with inflammatory process. Sal Morton MD Chest X-Ray 05/14/17 0000 Signed Impressions: Service Date/Time: Sunday, May 14, 2017 19:37 - CONCLUSION: No acute disease. Damaso Ragsdale MD Laboratory Test 05/14/17 19:18 05/14/17 19:27 05/15/17 06:00 Urine Color LIGHT-YELLOW Urine Turbidity CLEAR Urine pH 7.0 Urine Specific [place] 1.006 Urine Protein NEG mg/dL Urine Glucose (UA) NEG mg/dL Urine Ketones NEG mg/dL Urine Occult Blood NEG Urine Nitrite NEG Urine Bilirubin NEG Urine Urobilinogen LESS THAN 2.0 MG/DL Urine Leukocyte Esterase NEG Urine WBC LESS THAN 1 /hpf Microscopic Urinalysis Comment CULT NOT INDICATED White Blood Count 11.4 TH/MM3 9.0 TH/MM3 Red Blood Count 3.92 MIL/MM3 3.39 MIL/MM3 Hemoglobin 13.0 GM/DL 11.6 GM/DL Hematocrit 38.6 % 33.6 % Mean Corpuscular Volume 98.5 FL 99.2 FL Mean Corpuscular Hemoglobin 33.3 PG 34.2 PG Mean Corpuscular Hemoglobin Concent 33.8 % 34.5 % Red Cell Distribution Width 12.9 % 13.3 % Platelet Count 227 TH/MM3 203 TH/MM3 Mean Platelet Volume 7.8 FL 8.3 FL Neutrophils (%) (Auto) 85.5 % 82.1 % Lymphocytes (%) (Auto) 7.5 % 10.5 % Monocytes (%) (Auto) 6.6 % 7.1 % Eosinophils (%) (Auto) 0.2 % 0.1 % Basophils (%) (Auto) 0.2 % 0.2 % Neutrophils # (Auto) 9.7 TH/MM3 7.4 TH/MM3 Lymphocytes # (Auto) 0.9 TH/MM3 0.9 TH/MM3 Monocytes # (Auto) 0.7 TH/MM3 0.6 TH/MM3 Eosinophils # (Auto) 0.0 TH/MM3 0.0 TH/MM3 Basophils # (Auto) 0.0 TH/MM3 0.0 TH/MM3 CBC Comment DIFF FINAL DIFF FINAL Differential Comment Prothrombin Time 10.8 SEC Prothromb Time International Ratio 1.0 RATIO Activated Partial Thromboplast Time 25.8 SEC Blood Urea Nitrogen 11 MG/DL 10 MG/DL Creatinine 0.78 MG/DL 0.86 MG/DL Random Glucose 110 MG/DL 91 MG/DL Total Protein 7.3 GM/DL 6.6 GM/DL Albumin 3.9 GM/DL 3.2 GM/DL Calcium Level 9.7 MG/DL 9.0 MG/DL Alkaline Phosphatase 53 U/L 57 U/L Aspartate Amino Transf (AST/SGOT) 17 U/L 23 U/L Alanine Aminotransferase (ALT/SGPT) 19 U/L 25 U/L Total Bilirubin 1.1 MG/DL 1.9 MG/DL Sodium Level 133 MEQ/L 138 MEQ/L Potassium Level 3.8 MEQ/L 3.7 MEQ/L Chloride Level 100 MEQ/L 103 MEQ/L Carbon Dioxide Level 26.3 MEQ/L 27.6 MEQ/L Anion Gap 7 MEQ/L 7 MEQ/L Estimat Glomerular Filtration Rate 72 ML/MIN 65 ML/MIN Lactic Acid Level 0.8 mmol/L Lipase 151 U/L Physical Examination HEENT: Normocephalic; atraumatic; no jaundice. CHEST: CTA CARDIAC: RRR ABDOMEN: Soft, nondistended, nontender; no hepatosplenomegaly; bowel sounds are present in all four quadrants. EXTREMITIES: No clubbing, cyanosis, or edema. SKIN: Normal; no rash; no jaundice. PLASTERER TENDER: No focal deficits; alert and oriented times three. (Hannah Dias) Assessment and Plan Plan ASSESSMENT: - Abdominal pain with abnormal imaging suspicious for ileitis. Pt has had vague GI symptoms x 15-20 years (indigestion, bloating, diarrhea) Reports that these have significant worsened over past month when she relocated to this area. Last colonoscopy 4 years ago in [place] reports unremarkable. CT scan abdomen and pelvis (05/14/17)----> Inflamed appearance of RLQ bowel structures and surrounding tissues with differential considerations primarily include ileitis, IBD, or appendicitis. Mild intra-extrahepatic biliary ductal dilatation and moderate gallbladder distention. No specific etiology identified. ADDENDUM: Delayed imaging was obtained. The inflammatory structure in the RLQ appears to be confined to the ileum. There is residual contrast within a tubular structure believed to be the appendix and not involved with inflammatory process. No known fhx of IBD. Mild leukocytosis, WBC 11.4---> 9.0. GS following. Levaquin/Flagyl. Will get stool studies. Cont. abx and then consider egd/colonoscopy in a few more days. D/W GS. - Intra-extrahepatic biliary ductal dilatation. LFTs normal. D/W Dr. Silva, who spoke to radiologist, who felt this was more a focal area close to the ampulla and did not feel that MRCP would be beneficial. ? EUS. - GERD, Bloating, indigestion. PPI. Consider EGD with colonoscopy in near future. - Leukocytosis, mild. Levaquin, flagyl. - HTN, Hypothyroidism per attending PLAN: - Clear liquids - PPI - Levaquin/Flagyl - Stool studies - Monitor labs - GS following - Consider EGD/Colonoscopy after a few days of IV abx - Consider EUS - Supportive care - D/W Dr. Silva - Further recommendations to follow based on results of above - PT seen and examined by Dr. Person and myself and this note is written on his behalf (Hannah Dias) Plan Patient was seen and examined, agree with the above note, possible infectious process plan to have treatment with antibiotic, with upper endoscopy and a colonoscopy considered in few days, if there is elevated liver function tests and symptoms persist we might need to do evaluation for the biliary tree with an endoscopic ultrasound and the pancreas (Ye Person MD) Hannah Dias May 15, 2017 14:36 Ye Person MD May 15, 2017 17:51
[2017-05-15] MEDS: ENOXAPARIN SODIUM 30 MG/0.3 ML SYRINGE SQ SCH (14:44)
--- NOTE | 2017-05-15 14:44 | EKG ---
Date Performed: 05/14/2017 Time Performed: 19:37:01 PTAGE: 76 years EKG: Sinus rhythm NORMAL ECG NO PREVIOUS TRACING DOCTOR: Vivi Cho Interpretating Date/Time 05/15/2017 14:43:09
[2017-05-15 15:13] VITALS: BP 125/60; PULSE 91; RESP 22; TEMP 98.2; O2SAT 93
[2017-05-15] MEDS: metroNIDAZOLE 500 MG INJ 100 ML IV SCH ×3 (15:27→21:48)
[2017-05-15 20:01] VITALS: BP 138/65; PULSE 100; RESP 18; TEMP 97.6; O2SAT 98
[2017-05-15] MEDS ORDERED: traMADol HCL 50 MG TAB PO ONE (20:45)
--- NOTE | 2017-05-15 22:29 | RADRPT ---
EXAM DATE/TIME: 05/15/2017 19:20 [facility] COMPARISON: CT ABDOMEN & PELVIS W CONTRAST, May 14, 2017, 20:42. INDICATIONS : Right upper quadrant pain. MEDICAL HISTORY : Hypothyroidism. Gastroesophageal reflux disease. Hypertension. Neuropathy. Arthritis. Osteoarthritis. SURGICAL HISTORY : Rotator cuff, left. ENCOUNTER: Initial ACUITY: 1 week PAIN SCORE: 6/10 LOCATION: Right upper quadrant MEASUREMENTS: LIVER: 14.1 cm length COMMON DUCT: 9 mm RIGHT KIDNEY: 9.5 x 4.7 x 4.0 cm FINDINGS: LIVER: Normal echotexture without focal lesion or ductal dilatation. COMMON DUCT: Mildly dilated throughout. No filling defects. GALLBLADDER: Distended with single elongated shadowing focus along the wall of the fundus. No significant wall thi ckening or pericholecystic fluid. PANCREAS: The visualized portions are within normal limits. RIGHT KIDNEY: No evidence of hydronephrosis, stone, or mass. CONCLUSION: Mild extrahepatic biliary ductal dilatation. Moderate gallbladder distention with stone or wall calci fication. Damaso Ragsdale MD on May 15, 2017 at 22:22 Board Certified Radiologist. This report was verified electronically.
[2017-05-15 23:41] VITALS: BP 124/56; PULSE 88; RESP 16; TEMP 97.9; O2SAT 94
[2017-05-16] VITALS (7 sets, daily range): BP systolic 110–141; BP diastolic 53–65; PULSE 67–91; RESP 18–24; TEMP 97.8–98.6; O2SAT 96–100
[2017-05-16] MEDS: SODIUM CHLOR 0.9% 1000 ML INJ 1,000 ML IV SCH ×2 (03:12→14:13)
[2017-05-16] MEDS: MORPHINE SULFATE 4 MG/ML INJ IV PUSH PRN ×3 (03:36→17:48)
[2017-05-16] MEDS: metroNIDAZOLE 500 MG INJ 100 ML IV SCH ×4 (05:46→22:11)
[2017-05-16] MEDS: LEVOTHYROXINE SODIUM 112 MCG TAB PO SCH (05:46)
[2017-05-16 07:28] LABS: AUTOMATED NEUTROPHIL # 7.8 TH/MM3 (1.8-7.7); BASOPHIL % 0.2 % (0.0-2.0); EOSINOPHIL % 0.3 % (0.0-4.0); HEMATOCRIT 31.4 % (35.0-46.0); HEMO FLAGS DIFF FINAL; LYMPH % 6.2 % (9.0-44.0); LYMPHOCYTE # 0.6 TH/MM3 (1.0-4.8); MEAN CELL VOLUME 99.1 FL (80.0-100.0); MEAN CORPUSCULAR HEMOGLOBIN 33.6 PG (27.0-34.0); MEAN CORPUSCULAR HGB CONC 33.9 % (32.0-36.0); MONO % 8.8 % (0.0-8.0); NEUT % 84.5 % (16.0-70.0); PLATELET COUNT 183 TH/MM3 (150-450); RED BLOOD COUNT 3.17 MIL/MM3 (4.00-5.30); WHITE BLOOD COUNT 9.3 TH/MM3 (4.0-11.0)
[2017-05-16 07:51] LABS: BICARBONATE 23.8 MEQ/L (21.0-32.0); POTASSIUM 3.6 MEQ/L (3.5-5.1)
[2017-05-16] MEDS: SODIUM CHLORIDE 0.9% FLUSH 10 ML FLUSH IV FLUSH SCH ×2 (09:00→21:00)
[2017-05-16] MEDS: GABAPENTIN 400 MG CAP PO SCH ×3 (09:00→17:47)
[2017-05-16] MEDS: LEVOFLOXACIN 750 MG PREMIX INJ 150 ML IV SCH (09:01)
[2017-05-16] MEDS: amLODIPine BESYLATE 5 MG TAB PO SCH (09:04)
[2017-05-16] MEDS: PANTOPRAZOLE SOD 40 MG DELAYED RELEASE TAB PO SCH (09:05)
[2017-05-16] MEDS: DOCUSATE SODIUM 50 MG/SENNA 8.6 MG TAB PO SCH ×2 (09:05→22:10)
[2017-05-16] MEDS: LOSARTAN 50 MG TAB PO SCH (09:06)
--- NOTE | 2017-05-16 13:23 | HHI.PR ---
Subjective Remarks Patient still complains of right upper quadrant pain that she says feels like a knife stabbing into her. This is occurring intermittently. She's had a downward trend in her white blood cell count with antibiotics. Bacterial ileitis is suspected. Ultrasound shows thickening of the gallbladder which could also represent cholecystitis or biliary obstruction. Objective Vital Signs Date Time Temp Pulse Resp B/P (MAP) Pulse Ox O2 Delivery O2 Flow Rate FiO2 05/16/17 11:41 97.8 87 22 131/62 (85) 98 05/16/17 09:47 99 Room Air 05/16/17 07:37 98.3 85 22 137/62 (87) 99 05/16/17 03:26 97.9 90 19 139/65 (89) 100 05/16/17 00:42 98 Nasal Cannula 2.00 05/15/17 23:41 97.9 88 16 124/56 (78) 94 05/15/17 20:01 97.6 100 18 138/65 (89) 98 05/15/17 15:13 98.2 91 22 125/60 (81) 93 I/O 05/15/17 05/15/17 05/15/17 05/16/17 05/16/17 05/16/17 07:00 15:00 23:00 07:00 15:00 23:00 Intake Total 100 ml 240 ml 1450 ml 350 ml Output Total 1000 ml 500 ml 450 ml Balance -900 ml -500 ml 240 ml 1450 ml -100 ml Intake Oral 100 ml 240 ml 250 ml IV Total 1200 ml 350 ml Output Urine Total 1000 ml 500 ml 450 ml # Voids 4 5 3 # Bowel Movements 4 Result Diagram: 05/16/1716 05/16/17 0616 Objective Remarks GENERAL: NAD, A&Ox3 HEAD: Normocephalic. NECK: Supple, trachea midline. No lymphadenopathy. EYES: No scleral icterus. No injection or drainage. CARDIOVASCULAR: Regular rate and rhythm without murmurs, gallops, or rubs. RESPIRATORY: Breath sounds equal bilaterally. No accessory muscle use. GASTROINTESTINAL: Abdomen soft, nondistended. Right upper quadrant tenderness. MUSCULOSKELETAL: No cyanosis, or edema. SKIN: Warm and dry. NEURO: No focal neurological deficitis. A/P Problem List: (1) Right lower quadrant abdominal pain ICD Code: R10.31 - Right lower quadrant pain Status: Acute (2) Dehydration ICD Code: E86.0 - Dehydration (3) Ileitis ICD Code: K52.9 - Noninfective gastroenteritis and colitis, unspecified Assessment and Plan Assessment and Plan 76-year-old female admitted secondary to abdominal pain Suspected bacterial ileitis Continue Flagyl and Levaquin GI following Ultrasound shows thickening of the gallbladder HIDA scan ordered to evaluate for biliary obstruction or cholecystitis Continue as needed pain treatments Continue IV hydration Hypertension Continue amlodipine Continue losartan Follow blood pressures Hypothyroidism Continue levothyroxine Follows in outpatient Gastroesophageal reflux disease Continue pantoprazole DVT prophylaxis Aroldo Graves MD May 16, 2017 13:23
--- NOTE | 2017-05-16 13:55 | HHI.PR ---
Subjective Subjective Notes The patient states she still has right sided abdominal pain, now slightly more upper than lower. She has pain whenever she eats something. She denies any other nausea or vomiting. She has had several episodes of diarrhea today. She has noted no blood. Objective Vitals/I&O Vital Signs Date Time Temp Pulse Resp B/P (MAP) Pulse Ox O2 Delivery O2 Flow Rate FiO2 05/16/17 11:41 97.8 87 22 131/62 (85) 98 05/16/17 09:47 Room Air 05/16/17 00:42 2.00 Labs Laboratory Tests Test 05/16/17 06:16 05/16/17 09:40 White Blood Count 9.3 Red Blood Count 3.17 Hemoglobin 10.6 Hematocrit 31.4 Mean Corpuscular Volume 99.1 Mean Corpuscular Hemoglobin 33.6 Mean Corpuscular Hemoglobin Concent 33.9 Red Cell Distribution Width 13.0 Platelet Count 183 Mean Platelet Volume 8.4 Neutrophils (%) (Auto) 84.5 Lymphocytes (%) (Auto) 6.2 Monocytes (%) (Auto) 8.8 Eosinophils (%) (Auto) 0.3 Basophils (%) (Auto) 0.2 Neutrophils # (Auto) 7.8 Lymphocytes # (Auto) 0.6 Monocytes # (Auto) 0.8 Eosinophils # (Auto) 0.0 Basophils # (Auto) 0.0 CBC Comment DIFF FINAL Differential Comment Blood Urea Nitrogen 6 Creatinine 0.58 Random Glucose 94 Calcium Level 9.2 Sodium Level 136 Potassium Level 3.6 Chloride Level 103 Carbon Dioxide Level 23.8 Anion Gap 9 Estimat Glomerular Filtration Rate 102 Date/Time Source Procedure Growth Status 05/16/17 09:40 Stool Stool Cryptosporidium Exam Pending Received 05/16/17 09:40 Stool Stool Stool Pus ([facility]ON[facility]) Pending Received 05/16/17 09:40 Stool Stool Giardia Antigen ([facility]ONNA) Pending Received Radiology Last 72 hours Impressions Gall Bladder Ultrasound 05/15/17 0000 Signed Impressions: Service Date/Time: April 19:20 - CONCLUSION: Mild extrahepatic biliary ductal dilatation. Moderate gallbladder distention with stone or wall calcification. Damaso Ragsdale MD Abdomen/Pelvis CT 05/14/171915 Signed Impressions: Service Date/Time: Sunday, May 14, 2017 20:42 - CONCLUSION: Inflamed appearance of right lower quadrant bowel structures and surrounding tissues with differential considerations primarily include ileitis, IBD or appendicitis. Mild intra-extrahepatic biliary ductal dilatation and moderate gallbladder distention. No specific etiology identified Damaso Ragsdale MD ADDENDUM: Delayed imaging was obtained. The inflammatory structure in the right lower quadrant appears to be confined to the ileum. There is residual contrast within a tubular structure believed to be the appendix and not involved with inflammatory process. Sal Morton MD Chest X-Ray 05/14/17 0000 Signed Impressions: Service Date/Time: Sunday, May 14, 2017 19:37 - CONCLUSION: No acute disease. Damaso Ragsdale MD Last Impressions Abdomen/Pelvis CT 05/14/171915 Signed Impressions: Service Date/Time: Sunday, May 14, 2017 20:42 - CONCLUSION: Inflamed appearance of right lower quadrant bowel structures and surrounding tissues with differential considerations primarily include ileitis, IBD or appendicitis. Mild intra-extrahepatic biliary ductal dilatation and moderate gallbladder distention. No specific etiology identified Damaso Ragsdale MD ADDENDUM: Delayed imaging was obtained. The inflammatory structure in the right lower quadrant appears to be confined to the ileum. There is residual contrast within a tubular structure believed to be the appendix and not involved with inflammatory process. Sal Morton MD Chest X-Ray 05/14/17 0000 Signed Impressions: Service Date/Time: Sunday, May 14, 2017 19:37 - CONCLUSION: No acute disease. Damaso Ragsdale MD Cardiovascular: Regular Lungs: Clear Abdomen: Non-distended, Non-tender, BS normal Extremities: No edema Narrative Exam The patient's abdomen is very soft and nontender throughout except for very mild tenderness in the right upper quadrant but there is no guarding or rebound tenderness. A/P Assessment and Plan Impression: Abdominal pain with suggestion of ileitis on CT scan. In review of the entire chart, the patient has a mild left shift even though she has had return of her white blood count to normal. Also in reading the full ultrasound report, she is noted to have no significant gallbladder wall thickening or pericholecystic fluid. The ultrasound also notes that she has a 9 mm common bile duct with mild dilatation of the extrahepatic biliary tree. Her liver function tests are normal, other than a slightly increased total bilirubin at 1.9 today (compared to 1.2 previously). In view of the ultrasound and CT findings, there may be some type of extrahepatic biliary dysfunction, resulting in the dilated common bile duct and elevated bilirubin. Her gallbladder wall does NOT appear to be thickened as noted on the full report (as opposed to the impression, which stated there is gallbladder wall thickening). In either case there is no evidence for need for surgical intervention. I believe her ileitis and extrahepatic biliary system disease should be further evaluated as per GI medicine. I'm not sure a HIDA scan will be revealing of anything significant at this point. Plan: There is no need for surgical intervention at this point. General surgery will sign off and see the patient as needed. Please call if needed. Tyree Timmons MD May 16, 2017 13:55
[2017-05-16] MEDS: ENOXAPARIN SODIUM 30 MG/0.3 ML SYRINGE SQ SCH (14:00)
[2017-05-16 14:48] LABS: C. DIFF EPI 027 PRESUMPTIVE NEGATIVE (NEGATIVE)
--- NOTE | 2017-05-16 15:44 | HHI.GIFU ---
Subjective Remarks Resting in bed. States that she had a sharp pain in her RUQ that radiated down to her RLQ overnight and has continued to have a milder intermittent pain, more on the right side. Taking full liquids- had grits, ice cream. Reports that she has had 2 bowel movements today, loose but not diarrhea. Objective Vitals I&O Vital Signs Date Time Temp Pulse Resp B/P (MAP) Pulse Ox O2 Delivery O2 Flow Rate FiO2 05/16/17 15:29 18 05/16/17 11:41 97.8 87 22 131/62 (85) 98 05/16/17 09:47 99 Room Air 05/16/17 07:37 98.3 85 22 137/62 (87) 99 05/16/17 03:26 97.9 90 19 139/65 (89) 100 05/16/17 00:42 98 Nasal Cannula 2.00 05/15/17 23:41 97.9 88 16 124/56 (78) 94 05/15/17 20:01 97.6 100 18 138/65 (89) 98 I/O 05/15/17 05/15/17 05/15/17 05/16/17 05/16/17 05/16/17 07:00 15:00 23:00 07:00 15:00 23:00 Intake Total 100 ml 240 ml 1450 ml 350 ml Output Total 1000 ml 500 ml 450 ml Balance -900 ml -500 ml 240 ml 1450 ml -100 ml Intake Oral 100 ml 240 ml 250 ml IV Total 1200 ml 350 ml Output Urine Total 1000 ml 500 ml 450 ml # Voids 4 5 3 # Bowel Movements 4 Laboratory Laboratory Tests Test 05/16/17 06:16 05/16/17 09:40 White Blood Count 9.3 Red Blood Count 3.17 Hemoglobin 10.6 Hematocrit 31.4 Mean Corpuscular Volume 99.1 Mean Corpuscular Hemoglobin 33.6 Mean Corpuscular Hemoglobin Concent 33.9 Red Cell Distribution Width 13.0 Platelet Count 183 Mean Platelet Volume 8.4 Neutrophils (%) (Auto) 84.5 Lymphocytes (%) (Auto) 6.2 Monocytes (%) (Auto) 8.8 Eosinophils (%) (Auto) 0.3 Basophils (%) (Auto) 0.2 Neutrophils # (Auto) 7.8 Lymphocytes # (Auto) 0.6 Monocytes # (Auto) 0.8 Eosinophils # (Auto) 0.0 Basophils # (Auto) 0.0 CBC Comment DIFF FINAL Differential Comment Blood Urea Nitrogen 6 Creatinine 0.58 Random Glucose 94 Calcium Level 9.2 Sodium Level 136 Potassium Level 3.6 Chloride Level 103 Carbon Dioxide Level 23.8 Anion Gap 9 Estimat Glomerular Filtration Rate 102 Stool C. difficile Toxin (PCR) NEGATIVE Stl C. difficile Toxin Epiderm 027 PRESUMPTIVE NEGATIVE Date/Time Source Procedure Growth Status 05/16/17 09:40 Stool Stool Cryptosporidium Exam Pending Received 05/16/17 09:40 Stool Stool Stool Pus (SHONNA) Pending Received 05/16/17 09:40 Stool Stool Giardia Antigen (SHONNA) Pending Received Imaging Last Impressions Gall Bladder Ultrasound 05/15/17 0000 Signed Impressions: Service Date/Time: April 19:20 - CONCLUSION: Mild extrahepatic biliary ductal dilatation. Moderate gallbladder distention with stone or wall calcification. Damaso Ragsdale MD Abdomen/Pelvis CT 05/14/17 1916 Signed Impressions: Service Date/Time: Sunday, May 14, 2017 20:42 - CONCLUSION: Inflamed appearance of right lower quadrant bowel structures and surrounding tissues with differential considerations primarily include ileitis, IBD or appendicitis. Mild intra-extrahepatic biliary ductal dilatation and moderate gallbladder distention. No specific etiology identified Damaso Ragsdale MD ADDENDUM: Delayed imaging was obtained. The inflammatory structure in the right lower quadrant appears to be confined to the ileum. There is residual contrast within a tubular structure believed to be the appendix and not involved with inflammatory process. Sal Morton MD Chest X-Ray 05/14/17 0000 Signed Impressions: Service Date/Time: Sunday, May 14, 2017 19:37 - CONCLUSION: No acute disease. Damaso Ragsdale MD Physical Exam HEENT: Normocephalic; atraumatic; no jaundice. CHEST: CTA CARDIAC: RRR. ABDOMEN: Soft, mildly distended, right sided abdominal pain no hepatosplenomegaly; bowel sounds are present in all four quadrants. EXTREMITIES: No clubbing, cyanosis, or edema. SKIN: Normal; no rash; no jaundice. CONFIGURATION MANAGER: No focal deficits; Lethargic and oriented times three. Assessment and Plan Plan ASSESSMENT: - Abdominal pain with abnormal imaging suspicious for ileitis. Pt has had vague GI symptoms x 15-20 years (indigestion, bloating, diarrhea) Reports that these have significant worsened over past month when she relocated to this area. Last colonoscopy 4 years ago in [place] reports unremarkable. CT scan abdomen and pelvis (05/14/17)----> Inflamed appearance of RLQ bowel structures and surrounding tissues with differential considerations primarily include ileitis, IBD, or appendicitis. Mild intra-extrahepatic biliary ductal dilatation and moderate gallbladder distention. No specific etiology identified. ADDENDUM: Delayed imaging was obtained. The inflammatory structure in the RLQ appears to be confined to the ileum. There is residual contrast within a tubular structure believed to be the appendix and not involved with inflammatory process. No known fhx of IBD. GS following. Stool studies pending. She had more right sided abdominal pain overnight, tolerating full liquids. Few loose stools. Levaquin/Flagyl. Possible EGD/ Colonoscopy Friday. - Intra-extrahepatic biliary ductal dilatation. LFTs normal. D/W Dr. Silva, who spoke to radiologist, who felt this was more a focal area close to the ampulla and did not feel that MRCP would be beneficial. Possible EUS - inpatient vs. outpatient. - GERD, Bloating, indigestion. PPI. Consider EGD with colonoscopy in near future. - Leukocytosis, mild. Levaquin, flagyl. - HTN, Hypothyroidism per attending PLAN: - Full liquids - PPI - Levaquin/Flagyl - Await stool studies - Monitor labs - GS following - Supportive care - Possible egd/colonoscopy next week - Possible EUS, inpatient vs. outpatient - Further recommendations to follow based on results of above - PT seen and examined by Dr. Person and myself and this note is written on his behalf Hannah Dias May 16, 2017 15:44
--- NOTE | 2017-05-16 17:38 | HHI.GIFU ---
Objective Vitals I&O Vital Signs Date Time Temp Pulse Resp B/P (MAP) Pulse Ox O2 Delivery O2 Flow Rate FiO2 05/16/17 15:50 98.5 67 24 110/53 (72) 98 05/16/17 15:37 98.6 79 22 133/60 (84) 96 05/16/17 15:29 18 05/16/17 11:41 97.8 87 22 131/62 (85) 98 05/16/17 09:47 99 Room Air 05/16/17 07:37 98.3 85 22 137/62 (87) 99 05/16/17 03:26 97.9 90 19 139/65 (89) 100 05/16/17 00:42 98 Nasal Cannula 2.00 05/15/17 23:41 97.9 88 16 124/56 (78) 94 05/15/17 20:01 97.6 100 18 138/65 (89) 98 I/O 05/15/17 05/15/17 05/15/17 05/16/17 05/16/17 05/16/17 07:00 15:00 23:00 07:00 15:00 23:00 Intake Total 100 ml 240 ml 1450 ml 350 ml Output Total 1000 ml 500 ml 450 ml 700 ml Balance -900 ml -500 ml 240 ml 1450 ml -100 ml -700 ml Intake Oral 100 ml 240 ml 250 ml IV Total 1200 ml 350 ml Output Urine Total 1000 ml 500 ml 450 ml 700 ml # Voids 4 5 3 # Bowel Movements 4 1 Laboratory Laboratory Tests Test 05/16/17 06:16 05/16/17 09:40 White Blood Count 9.3 Red Blood Count 3.17 Hemoglobin 10.6 Hematocrit 31.4 Mean Corpuscular Volume 99.1 Mean Corpuscular Hemoglobin 33.6 Mean Corpuscular Hemoglobin Concent 33.9 Red Cell Distribution Width 13.0 Platelet Count 183 Mean Platelet Volume 8.4 Neutrophils (%) (Auto) 84.5 Lymphocytes (%) (Auto) 6.2 Monocytes (%) (Auto) 8.8 Eosinophils (%) (Auto) 0.3 Basophils (%) (Auto) 0.2 Neutrophils # (Auto) 7.8 Lymphocytes # (Auto) 0.6 Monocytes # (Auto) 0.8 Eosinophils # (Auto) 0.0 Basophils # (Auto) 0.0 CBC Comment DIFF FINAL Differential Comment Blood Urea Nitrogen 6 Creatinine 0.58 Random Glucose 94 Calcium Level 9.2 Sodium Level 136 Potassium Level 3.6 Chloride Level 103 Carbon Dioxide Level 23.8 Anion Gap 9 Estimat Glomerular Filtration Rate 102 Stool C. difficile Toxin (PCR) NEGATIVE Stl C. difficile Toxin Epiderm 027 PRESUMPTIVE NEGATIVE Date/Time Source Procedure Growth Status 05/16/17 09:40 Stool Stool Cryptosporidium Exam Pending Received 05/16/17 09:40 Stool Stool Stool Pus (SHONNA) Pending Received 05/16/17 09:40 Stool Stool Giardia Antigen (SHONNA) Pending Received Physical Exam HEENT: Normocephalic; atraumatic; no jaundice. CHEST: CTA CARDIAC: RRR. ABDOMEN: Soft, mildly distended, right sided abdominal pain no hepatosplenomegaly; bowel sounds are present in all four quadrants. EXTREMITIES: No clubbing, cyanosis, or edema. SKIN: Normal; no rash; no jaundice. TRAFFIC AGENT: No focal deficits; Lethargic and oriented times three. Assessment and Plan Plan ASSESSMENT: - Abdominal pain with abnormal imaging suspicious for ileitis. Pt has had vague GI symptoms x 15-20 years (indigestion, bloating, diarrhea) Reports that these have significant worsened over past month when she relocated to this area. Last colonoscopy 4 years ago in [place] reports unremarkable. CT scan abdomen and pelvis (05/14/17)----> Inflamed appearance of RLQ bowel structures and surrounding tissues with differential considerations primarily include ileitis, IBD, or appendicitis. Mild intra-extrahepatic biliary ductal dilatation and moderate gallbladder distention. No specific etiology identified. ADDENDUM: Delayed imaging was obtained. The inflammatory structure in the RLQ appears to be confined to the ileum. There is residual contrast within a tubular structure believed to be the appendix and not involved with inflammatory process. No known fhx of IBD. GS following. Stool studies pending. She had more right sided abdominal pain overnight, tolerating full liquids. Few loose stools. Levaquin/Flagyl. Possible EGD/ Colonoscopy Friday. - Intra-extrahepatic biliary ductal dilatation. LFTs normal. D/W Dr. Silva, who spoke to radiologist, who felt this was more a focal area close to the ampulla and did not feel that MRCP would be beneficial. Possible EUS - inpatient vs. outpatient. - GERD, Bloating, indigestion. PPI. Consider EGD with colonoscopy in near future. - Leukocytosis, mild. Levaquin, flagyl. - HTN, Hypothyroidism per attending PLAN: - Full liquids - PPI - Levaquin/Flagyl - Await stool studies - Monitor labs - GS following - Supportive care - Possible egd/colonoscopy next week - Possible EUS, inpatient vs. outpatient - Further recommendations to follow based on results of above - PT seen and examined by Dr. Person and myself and this note is written on his behalf patient was seen and examined, agree with above note, still c/o abdominal discomfort, mostly right side. because of the increase of total aurelia and dilated CBD i will do MRCP to R/O bile duct obstruction Ye Person MD May 16, 2017 17:38
[2017-05-16] MEDS: ACETAMINOPHEN/HYDROcodone 325 MG/5 MG TAB PO PRN (22:10)
[2017-05-17] MEDS: SODIUM CHLOR 0.9% 1000 ML INJ 1,000 ML IV SCH ×2 (00:13→10:13)
[2017-05-17 00:15] VITALS: BP 117/57; PULSE 79; RESP 22; TEMP 98.3
[2017-05-17 04:30] VITALS: BP 124/58; PULSE 83; RESP 18; TEMP 97.7; O2SAT 94
[2017-05-17] MEDS: metroNIDAZOLE 500 MG INJ 100 ML IV SCH ×4 (05:28→23:23)
[2017-05-17] MEDS: LEVOTHYROXINE SODIUM 112 MCG TAB PO SCH (05:28)
--- NOTE | 2017-05-17 08:43 | RADRPT ---
EXAM DATE/TIME: 05/17/2017 07:45 [facility] COMPARISON: CT ABDOMEN & PELVIS W CONTRAST, May 14, 2017, 20:42. US ABDOMEN - GALLBLADDER, May 15, 2017, 19:20. INDICATIONS : Obstruction. MEDICAL HISTORY : Hypertension. SURGICAL HISTORY : Left shoulder surgery. ENCOUNTER: Initial ACUITY: 1 day PAIN SCORE: 5/10 LOCATION: Right upper quadrant TECHNIQUE: Multiplanar, multisequence magnetic resonance imaging of the abdomen was performed. High-resolution 3D dataset was utilized to reconstruct maximum-intensity projection (MIP) images. FINDINGS: INTRAHEPATIC BILE DUCTS: Within normal limits. No significant anatomical variant is present. EXTRAHEPATIC BILE DUCTS: The common bile duct measures 8 mm. Questionable filling defect is identified distally. If there is c linical concern for biliary obstruction, hepatobiliary scan may be helpful for confirmation. GALLBLADDER: The gallbladder is distended. Minimal cholelithiasis is noted. No wall thickening or pericholecystic fluid is noted. LIVER: Normal size and signal intensity. No concerning liver lesion is identified on this non-contrast exam. PANCREAS: The main pancreatic duct is slightly prominent in caliber. There is no significant anatomical varian t. Signal intensity is within normal limits. No mass is visualized on this non-contrast exam. OTHER: The remaining visualized structures demonstrate no acute abnormality on this non-contrast exam. There is a T2 signal hyperintensity within the anterior aspect of the spleen measuring 18 mm consistent wi th possible hemangioma or cyst. CONCLUSION: 1. Questionable filling defect within the distal common bile duct with minimal dilatation of the extr ahepatic biliary system. If there is clinical concern for biliary obstruction, a hepatobiliary scan m ay be helpful for confirmation. 2. Distended gallbladder with minimal cholelithiasis. 3. 18 mm T2 hyperintensity within the spleen consistent with hemangioma or cyst. 4. Minimal prominence of the main pancreatic duct. 5. Mild scoliosis and degenerative changes of the lumbar spine. Sukh Rivero MD on May 17, 2017 at 8:27 Board Certified Radiologist. This report was verified electronically.
[2017-05-17] MEDS: DOCUSATE SODIUM 50 MG/SENNA 8.6 MG TAB PO SCH ×2 (09:00→20:35)
[2017-05-17] MEDS: SODIUM CHLORIDE 0.9% FLUSH 10 ML FLUSH IV FLUSH SCH ×2 (09:00→20:35)
[2017-05-17] MEDS: ONDANSETRON HCL 4 MG/2 ML VIAL IVP PRN ×2 (10:24→18:59)
[2017-05-17] MEDS: GABAPENTIN 400 MG CAP PO SCH ×3 (10:25→15:56)
[2017-05-17] MEDS: PANTOPRAZOLE SOD 40 MG DELAYED RELEASE TAB PO SCH (10:25)
[2017-05-17] MEDS: LOSARTAN 50 MG TAB PO SCH (10:26)
[2017-05-17] MEDS: amLODIPine BESYLATE 5 MG TAB PO SCH (10:26)
--- NOTE | 2017-05-17 10:26 | RADRPT ---
EXAM DATE/TIME: 05/17/2017 08:35 [facility] COMPARISON: No previous studies available for comparison. INDICATIONS : Abdominal pain. DOSE: 4.1 mCi Tc99m Mebrofenin IV MEDICAL HISTORY : None SURGICAL HISTORY : None. ENCOUNTER: Initial ACUITY: 1 day PAIN SCALE: 7/10 LOCATION: Right upper quadrant TECHNIQUE: Following the intravenous administration of radiotracer, dynamic sequential images were performed wit h continuous acquisition. FINDINGS: HEPATIC KINETICS: There is prompt uptake of radiotracer in the liver. No focal defects are seen. There is normal rate of washout from the hepatic parenchyma. BILIARY CLEARANCE: Activity is first seen in the extrahepatic biliary system at 15 minutes. There is normal excretion i nto the small bowel. GALLBLADDER: Activity is first seen in the gallbladder at 40 minutes. Common bile duct kinetics are normal and th ere is no evidence of biliary obstruction. BILIARY ENTRIC REFLUX: None observed. CONCLUSION: No evidence of cystic duct or distal common bile duct obstruction. Sukh Rivero MD on May 17, 2017 at 10:22 Board Certified Radiologist. This report was verified electronically.
[2017-05-17] MEDS: LEVOFLOXACIN 750 MG PREMIX INJ 150 ML IV SCH (10:28)
[2017-05-17 10:56] LABS: AUTOMATED NEUTROPHIL # 5.8 TH/MM3 (1.8-7.7); BASOPHIL % 0.2 % (0.0-2.0); EOSINOPHIL % 0.5 % (0.0-4.0); HEMATOCRIT 33.4 % (35.0-46.0); HEMO FLAGS DIFF FINAL; LYMPHOCYTE # 0.6 TH/MM3 (1.0-4.8); MEAN CELL VOLUME 99.1 FL (80.0-100.0); MEAN CORPUSCULAR HEMOGLOBIN 33.6 PG (27.0-34.0); MEAN CORPUSCULAR HGB CONC 33.9 % (32.0-36.0); MONO % 8.3 % (0.0-8.0); PLATELET COUNT 219 TH/MM3 (150-450); RED BLOOD COUNT 3.37 MIL/MM3 (4.00-5.30); RED CELL DISTRIBUTION WIDTH 13.1 % (11.6-17.2); WHITE BLOOD COUNT 7.1 TH/MM3 (4.0-11.0)
[2017-05-17] MEDS: ENOXAPARIN SODIUM 30 MG/0.3 ML SYRINGE SQ SCH (11:50)
[2017-05-17 11:52] LABS: ALT (GPT) 16 U/L (10-53); ANION GAP 8 MEQ/L (5-15); AST (GOT) 15 U/L (15-37); BICARBONATE 24.9 MEQ/L (21.0-32.0); BLOOD UREA NITROGEN 6 MG/DL (7-18); CHLORIDE 106 MEQ/L (98-107); GLOMERULAR FILTRATION RATE 83 ML/MIN (>89); POTASSIUM 3.4 MEQ/L (3.5-5.1); SODIUM (NA) 139 MEQ/L (136-145)
[2017-05-17 11:55] LABS: ALKALINE PHOSPHATASE 55 U/L (45-117); TOTAL BILIRUBIN ADULT 0.6 MG/DL (0.2-1.0)
[2017-05-17 12:37] VITALS: BP 125/58; PULSE 109; RESP 20; TEMP 98.1; O2SAT 98
--- NOTE | 2017-05-17 15:17 | HHI.PR ---
Objective Vitals Result Diagram: 05/17/17 1023 05/17/17 1023 Procedures None Nicci Lee MD May 17, 2017 15:17
--- NOTE | 2017-05-17 15:32 | HHI.PR ---
Subjective Remarks persistent right lower quadrant pain radiating to the right upper rib cage persistent nausea poor po + flatus, + BM small liquid Objective Vitals Vital Signs Date Time Temp Pulse Resp B/P (MAP) Pulse Ox O2 Delivery O2 Flow Rate FiO2 05/17/17 12:37 98.1 109 20 125/58 (80) 98 05/17/17 07:00 Room Air 05/17/17 04:30 97.7 83 18 124/58 (80) 94 05/17/17 00:15 98.3 79 22 117/57 (77) 05/16/17 20:41 98.5 83 18 112/55 (74) 98 05/16/17 19:00 Room Air 05/16/17 17:56 18 05/16/17 17:38 98.5 91 18 141/63 (89) 98 05/16/17 15:50 98.5 67 24 110/53 (72) 98 05/16/17 15:37 98.6 79 22 133/60 (84) 96 I/O 05/16/17 05/16/17 05/16/17 05/17/17 05/17/17 05/17/17 07:00 15:00 23:00 07:00 15:00 23:00 Intake Total 1450 ml 350 ml 523 ml Output Total 450 ml 700 ml Balance 1450 ml -100 ml -700 ml 523 ml Intake Oral 250 ml IV Total 1200 ml 350 ml 523 ml Output Urine Total 450 ml 700 ml # Voids 3 1 2 # Bowel Movements 4 1 0 Result Diagram: 05/17/17 1023 05/17/17 1023 Imaging Last Impressions Hepatobiliary Scan Nuclear Medicine 05/17/17 0000 Signed Impressions: Service Date/Time: Wednesday, May 17, 2017 08:35 - CONCLUSION: No evidence of cystic duct or distal common bile duct obstruction. Sukh Rivero MD Cholangiopancreatography MRI 05/17/17 0000 Signed Impressions: Service Date/Time: Wednesday, May 17, 2017 07:45 - CONCLUSION: 1. Questionable filling defect within the distal common bile duct with minimal dilatation of the extrahepatic biliary system. If there is clinical concern for biliary obstruction, a hepatobiliary scan may be helpful for confirmation. 2. Distended gallbladder with minimal cholelithiasis. 3. 18 mm T2 hyperintensity within the spleen consistent with hemangioma or cyst. 4. Minimal prominence of the main pancreatic duct. 5. Mild scoliosis and degenerative changes of the lumbar spine. Sukh Rivero MD Gall Bladder Ultrasound 05/15/17 0000 Signed Impressions: Service Date/Time: April 19:20 - CONCLUSION: Mild extrahepatic biliary ductal dilatation. Moderate gallbladder distention with stone or wall calcification. Damaso Ragsdale MD Abdomen/Pelvis CT 05/14/17 1916 Signed Impressions: Service Date/Time: Sunday, May 14, 2017 20:42 - CONCLUSION: Inflamed appearance of right lower quadrant bowel structures and surrounding tissues with differential considerations primarily include ileitis, IBD or appendicitis. Mild intra-extrahepatic biliary ductal dilatation and moderate gallbladder distention. No specific etiology identified Damaso Ragsdale MD ADDENDUM: Delayed imaging was obtained. The inflammatory structure in the right lower quadrant appears to be confined to the ileum. There is residual contrast within a tubular structure believed to be the appendix and not involved with inflammatory process. Sal Morton MD Chest X-Ray 05/14/17 0000 Signed Impressions: Service Date/Time: Sunday, May 14, 2017 19:37 - CONCLUSION: No acute disease. Damaso Ragsdale MD Objective Remarks awake and alert, weak anicteric lungs clear regular rhythma abdomen- slightly distended, + tenderness on palpation of right lower quadrant to right upper quadrant , hyperactive bowel sounds extrmities no edema Procedures None A/P Problem List: (1) Ileitis ICD Code: K52.9 - Noninfective gastroenteritis and colitis, unspecified (2) Dehydration ICD Code: E86.0 - Dehydration (3) HTN (hypertension) ICD Code: I10 - Essential (primary) hypertension Assessment and Plan 76-year-old female admitted secondary to abdominal pain Right L:Ower quadrant pain radaiiting to Right Upper quadrant R/O GB pathology CT with possible ilietis reviewed US abdomen- GB distended Continue Flagyl and Levaquin GI following- plan for EGD/colonoscopy on Friday Ultrasound shows thickening of the gallbladder - seen by Surgery- non surgical Continue as needed pain treatments Continue IV hydration d/w Dr. Reynolds GI Hypertension Continue amlodipine Continue losartan Follow blood pressures Hypothyroidism Continue levothyroxine Follows in outpatient Gastroesophageal reflux disease Continue pantoprazole DVT prophylaxis Lovenox May 16, 2017 13:23 Nicci Lee MD May 17, 2017 15:31
[2017-05-17] MEDS: D5-NS + KCL 20 MEQ INJ 1,000 ML IV SCH (16:49)
--- NOTE | 2017-05-17 17:01 | HHI.GIFU ---
Subjective Remarks Pt continues to have discomfort in right side of abdomen. The pain is sharp. She has moved her bowels a few times after a stool softener but she often has bowel irregularity at home. MRCP shows large GB with apparent small stones. Possible CBD filling defect. However, LFTs have returned to normal. ERCP may be indicated. Will try to clean out colon tonight to see if it allows improvement given the diagnostic uncertainty. Objective Vitals I&O Vital Signs Date Time Temp Pulse Resp B/P (MAP) Pulse Ox O2 Delivery O2 Flow Rate FiO2 05/17/17 12:37 98.1 109 20 125/58 (80) 98 05/17/17 07:00 Room Air 05/17/17 04:30 97.7 83 18 124/58 (80) 94 05/17/17 00:15 98.3 79 22 117/57 (77) 05/16/17 20:41 98.5 83 18 112/55 (74) 98 05/16/17 19:00 Room Air 05/16/17 17:56 18 05/16/17 17:38 98.5 91 18 141/63 (89) 98 I/O 05/16/17 05/16/17 05/16/17 05/17/17 05/17/17 05/17/17 07:00 15:00 23:00 07:00 15:00 23:00 Intake Total 1450 ml 350 ml 523 ml 780 ml Output Total 450 ml 700 ml Balance 1450 ml -100 ml -700 ml 523 ml 780 ml Intake Oral 250 ml IV Total 1200 ml 350 ml 523 ml 780 ml Output Urine Total 450 ml 700 ml # Voids 3 1 2 # Bowel Movements 4 1 0 Laboratory Laboratory Tests Test 05/17/17 10:23 White Blood Count 7.1 Red Blood Count 3.37 Hemoglobin 11.3 Hematocrit 33.4 Mean Corpuscular Volume 99.1 Mean Corpuscular Hemoglobin 33.6 Mean Corpuscular Hemoglobin Concent 33.9 Red Cell Distribution Width 13.1 Platelet Count 219 Mean Platelet Volume 8.1 Neutrophils (%) (Auto) 82.0 Lymphocytes (%) (Auto) 9.0 Monocytes (%) (Auto) 8.3 Eosinophils (%) (Auto) 0.5 Basophils (%) (Auto) 0.2 Neutrophils # (Auto) 5.8 Lymphocytes # (Auto) 0.6 Monocytes # (Auto) 0.6 Eosinophils # (Auto) 0.0 Basophils # (Auto) 0.0 CBC Comment DIFF FINAL Differential Comment Blood Urea Nitrogen 6 Creatinine 0.69 Random Glucose 95 Total Protein 6.6 Albumin 2.9 Calcium Level 9.0 Alkaline Phosphatase 55 Aspartate Amino Transf (AST/SGOT) 15 Alanine Aminotransferase (ALT/SGPT) 16 Total Bilirubin 0.6 Sodium Level 139 Potassium Level 3.4 Chloride Level 106 Carbon Dioxide Level 24.9 Anion Gap 8 Estimat Glomerular Filtration Rate 83 Date/Time Source Procedure Growth Status 05/16/17 09:40 Stool Stool Cryptosporidium Exam Pending Resulted 05/16/17 09:40 Stool Stool Stool Pus (SHONNA) - Final NO WBC'S SEEN Resulted 05/16/17 09:40 Stool Stool Giardia Antigen (SHONNA) Pending Resulted Physical Exam HEENT: Normocephalic; atraumatic; no jaundice. CHEST: CTA CARDIAC: RRR. ABDOMEN: Soft, mildly distended, right sided abdominal pain no hepatosplenomegaly; bowel sounds are present in all four quadrants. EXTREMITIES: No clubbing, cyanosis, or edema. SKIN: Normal; no rash; no jaundice. PRINCIPAL INVESTIGATOR: No focal deficits; oriented times three. Assessment and Plan Plan ASSESSMENT: - Abdominal pain with abnormal imaging suspicious for ileitis. Pt has had vague GI symptoms x 15-20 years (indigestion, bloating, diarrhea) Reports that these have significant worsened over past month when she relocated to this area. Last colonoscopy 4 years ago in [place] reports unremarkable. CT scan abdomen and pelvis (05/14/17)----> Inflamed appearance of RLQ bowel structures and surrounding tissues with differential considerations primarily include ileitis, IBD, or appendicitis. Mild intra-extrahepatic biliary ductal dilatation and moderate gallbladder distention. No specific etiology identified. ADDENDUM: Delayed imaging was obtained. The inflammatory structure in the RLQ appears to be confined to the ileum. There is residual contrast within a tubular structure believed to be the appendix and not involved with inflammatory process. No known fhx of IBD. GS following. Stool studies pending. She had more right sided abdominal pain overnight, tolerating full liquids. Few loose stools. Levaquin/Flagyl. Possible EGD/ Colonoscopy Friday. - Intra-extrahepatic biliary ductal dilatation. LFTs normal. D/W Dr. Silva, who spoke to radiologist, who felt this was more a focal area close to the ampulla and did not feel that MRCP would be beneficial. Possible EUS - inpatient vs. outpatient. - GERD, Bloating, indigestion. PPI. Consider EGD with colonoscopy in near future. - Leukocytosis, mild. Levaquin, flagyl. - HTN, Hypothyroidism per attending PLAN: - Miralax 6 doses tonight. - Full liquids - PPI - Levaquin/Flagyl - Await stool studies - Monitor labs - GS has signed off. - Supportive care - Possible egd/colonoscopy next week - Possible ERCP or EUS, inpatient vs. outpatient - Further recommendations to follow based on results of above Melvin Reynolds MD May 17, 2017 17:01
[2017-05-17] MEDS: POLYETHYLENE GLYCOL 17 GM PKG PO SCH ×3 (17:15→20:35)
[2017-05-17 20:00] VITALS: BP 160/71; PULSE 86; RESP 18; TEMP 98.2; O2SAT 99
[2017-05-17] MEDS: ACETAMINOPHEN/HYDROcodone 325 MG/5 MG TAB PO PRN (23:25)
[2017-05-18] VITALS: BP 120/55; PULSE 90; RESP 18; TEMP 97.2; O2SAT 92
[2017-05-18] MEDS: ONDANSETRON HCL 4 MG/2 ML VIAL IVP PRN ×3 (00:08→09:41)
[2017-05-18] MEDS: metroNIDAZOLE 500 MG INJ 100 ML IV SCH ×4 (04:27→23:03)
[2017-05-18] MEDS: D5-NS + KCL 20 MEQ INJ 1,000 ML IV SCH ×2 (04:29→09:26)
[2017-05-18] MEDS: LEVOTHYROXINE SODIUM 112 MCG TAB PO SCH (05:08)
[2017-05-18 05:09] VITALS: BP 131/60; PULSE 74; RESP 18; TEMP 98.1; O2SAT 96
[2017-05-18 08:45] VITALS: BP 163/73; PULSE 90; RESP 20; TEMP 98; O2SAT 96
[2017-05-18] MEDS: DOCUSATE SODIUM 50 MG/SENNA 8.6 MG TAB PO SCH ×2 (09:00→20:30)
[2017-05-18] MEDS: PANTOPRAZOLE SOD 40 MG DELAYED RELEASE TAB PO SCH (09:19)
[2017-05-18] MEDS: amLODIPine BESYLATE 5 MG TAB PO SCH (09:19)
[2017-05-18] MEDS: GABAPENTIN 400 MG CAP PO SCH ×3 (09:20→17:34)
[2017-05-18] MEDS: LOSARTAN 50 MG TAB PO SCH (09:20)
[2017-05-18] MEDS: SODIUM CHLORIDE 0.9% FLUSH 10 ML FLUSH IV FLUSH SCH ×2 (09:20→20:30)
[2017-05-18] MEDS: LEVOFLOXACIN 750 MG PREMIX INJ 150 ML IV SCH (09:41)
--- NOTE | 2017-05-18 10:00 | HHI.PR ---
Subjective Remarks right upper quadrant pain- a little better still + nausea Objective Vitals Vital Signs Date Time Temp Pulse Resp B/P (MAP) Pulse Ox O2 Delivery O2 Flow Rate FiO2 05/18/17 08:45 98.0 90 20 163/73 (103) 96 05/18/17 05:09 98.1 74 18 131/60 (83) 96 05/18/17 00:00 97.2 90 18 120/55 (76) 92 05/17/17 22:20 Room Air 05/17/17 20:00 98.2 86 18 160/71 (100) 99 05/17/17 12:37 98.1 109 20 125/58 (80) 98 I/O 05/17/17 05/17/17 05/17/17 05/18/17 05/18/17 05/18/17 07:00 15:00 23:00 07:00 15:00 23:00 Intake Total 523 ml 780 ml Balance 523 ml 780 ml IV Total 523 ml 780 ml # Voids 2 1 # Bowel Movements 0 1 Result Diagram: 05/17/17 1023 05/17/17 1023 Imaging Last Impressions Hepatobiliary Scan Nuclear Medicine 05/17/17 0000 Signed Impressions: Service Date/Time: Wednesday, May 17, 2017 08:35 - CONCLUSION: No evidence of cystic duct or distal common bile duct obstruction. Sukh Rivero MD Cholangiopancreatography MRI 05/17/17 0000 Signed Impressions: Service Date/Time: Wednesday, May 17, 2017 07:45 - CONCLUSION: 1. Questionable filling defect within the distal common bile duct with minimal dilatation of the extrahepatic biliary system. If there is clinical concern for biliary obstruction, a hepatobiliary scan may be helpful for confirmation. 2. Distended gallbladder with minimal cholelithiasis. 3. 18 mm T2 hyperintensity within the spleen consistent with hemangioma or cyst. 4. Minimal prominence of the main pancreatic duct. 5. Mild scoliosis and degenerative changes of the lumbar spine. Sukh Rivero MD Gall Bladder Ultrasound 05/15/17 0000 Signed Impressions: Service Date/Time: April 19:20 - CONCLUSION: Mild extrahepatic biliary ductal dilatation. Moderate gallbladder distention with stone or wall calcification. Damaso Ragsdale MD Abdomen/Pelvis CT 05/14/17 191 Signed Impressions: Service Date/Time: Sunday, May 14, 2017 20:42 - CONCLUSION: Inflamed appearance of right lower quadrant bowel structures and surrounding tissues with differential considerations primarily include ileitis, IBD or appendicitis. Mild intra-extrahepatic biliary ductal dilatation and moderate gallbladder distention. No specific etiology identified Damaso Ragsdale MD ADDENDUM: Delayed imaging was obtained. The inflammatory structure in the right lower quadrant appears to be confined to the ileum. There is residual contrast within a tubular structure believed to be the appendix and not involved with inflammatory process. Sal Morton MD Chest X-Ray 05/14/17 0000 Signed Impressions: Service Date/Time: Sunday, May 14, 2017 19:37 - CONCLUSION: No acute disease. Damaso Ragsdale MD Objective Remarks awake and alert, weak anicteric lungs clear regular rhythm abdomen- slightly distended, + tenderness on deep palpation fo right upper quadrant area and less on right lower quadrant , hyperactive bowel sounds eextrmities no edema Procedures None A/P Problem List: (1) Ileitis ICD Code: K52.9 - Noninfective gastroenteritis and colitis, unspecified (2) Dehydration ICD Code: E86.0 - Dehydration (3) HTN (hypertension) ICD Code: I10 - Essential (primary) hypertension Assessment and Plan 76-year-old female admitted secondary to abdominal pain Right Right Upper quadrant/lower quadrat pain R/O GB pathology CT with possible ilietis reviewed US abdomen- GB distended with small cholelithiasis- GS consulted- no plans for surgery Continue Flagyl and Levaquin GI following- plan for EGD/colonoscopy on Friday possibly ERCP- d/w Dr. Reynolds Continue as needed pain treatments Continue IV hydration keep NPO Hypertension Continue amlodipine Continue losartan Follow blood pressures Hypokalemia - K in IVF - replace -recheck in am Hypothyroidism Continue levothyroxine Follows in outpatient Gastroesophageal reflux disease Continue pantoprazole DVT prophylaxis Lovenox May 16, 2017 13:23 Nicci Lee MD May 18, 2017 10:00
[2017-05-18 10:37] LABS: ANION GAP 8 MEQ/L (5-15); AST (GOT) 14 U/L (15-37); BICARBONATE 24.1 MEQ/L (21.0-32.0); BLOOD UREA NITROGEN 3 MG/DL (7-18); CHLORIDE 107 MEQ/L (98-107); GLOMERULAR FILTRATION RATE 83 ML/MIN (>89); MAGNESIUM 1.9 MG/DL (1.5-2.5); POTASSIUM 3.3 MEQ/L (3.5-5.1); SODIUM (NA) 139 MEQ/L (136-145)
[2017-05-18 10:38] LABS: ALT (GPT) 16 U/L (10-53)
[2017-05-18 10:40] LABS: ALKALINE PHOSPHATASE 49 U/L (45-117); TOTAL BILIRUBIN ADULT 0.5 MG/DL (0.2-1.0)
[2017-05-18 12:09] VITALS: BP 140/67; PULSE 82; RESP 20; TEMP 98.1; O2SAT 98
[2017-05-18] MEDS: ENOXAPARIN SODIUM 30 MG/0.3 ML SYRINGE SQ SCH (13:04)
--- NOTE | 2017-05-18 13:44 | HHI.GIFU ---
Subjective Remarks Lying in bed. Denies abdominal pain today. Reports nausea, but no vomiting. Objective Vitals I&O Vital Signs Date Time Temp Pulse Resp B/P (MAP) Pulse Ox O2 Delivery O2 Flow Rate FiO2 05/18/17 12:09 98.1 82 20 140/67 (91) 98 05/18/17 08:45 98.0 90 20 163/73 (103) 96 05/18/17 05:09 98.1 74 18 131/60 (83) 96 05/18/17 00:00 97.2 90 18 120/55 (76) 92 05/17/17 22:20 Room Air 05/17/17 20:00 98.2 86 18 160/71 (100) 99 I/O 05/17/17 05/17/17 05/17/17 05/18/17 05/18/17 05/18/17 07:00 15:00 23:00 07:00 15:00 23:00 Intake Total 523 ml 780 ml 150 ml Balance 523 ml 780 ml 150 ml IV Total 523 ml 780 ml 150 ml # Voids 2 1 # Bowel Movements 0 1 Laboratory Laboratory Tests Test 05/18/17 08:55 Blood Urea Nitrogen 3 Creatinine 0.69 Random Glucose 116 Total Protein 6.4 Albumin 3.0 Calcium Level 9.5 Magnesium Level 1.9 Alkaline Phosphatase 49 Aspartate Amino Transf (AST/SGOT) 14 Alanine Aminotransferase (ALT/SGPT) 16 Total Bilirubin 0.5 Sodium Level 139 Potassium Level 3.3 Chloride Level 107 Carbon Dioxide Level 24.1 Anion Gap 8 Estimat Glomerular Filtration Rate 83 Date/Time Source Procedure Growth Status 05/16/17 09:40 Stool Stool Cryptosporidium Exam Pending Resulted 05/16/17 09:40 Stool Stool Stool Pus ([facility]ON[facility]) - Final NO WBC'S SEEN Resulted 05/16/17 09:40 Stool Stool Giardia Antigen ([facility]ON[facility]) Pending Resulted Imaging Last Impressions Hepatobiliary Scan Nuclear Medicine 05/17/17 0000 Signed Impressions: Service Date/Time: Wednesday, May 17, 2017 08:35 - CONCLUSION: No evidence of cystic duct or distal common bile duct obstruction. Sukh Rivero MD Cholangiopancreatography MRI 05/17/17 0000 Signed Impressions: Service Date/Time: Wednesday, May 17, 2017 07:45 - CONCLUSION: 1. Questionable filling defect within the distal common bile duct with minimal dilatation of the extrahepatic biliary system. If there is clinical concern for biliary obstruction, a hepatobiliary scan may be helpful for confirmation. 2. Distended gallbladder with minimal cholelithiasis. 3. 18 mm T2 hyperintensity within the spleen consistent with hemangioma or cyst. 4. Minimal prominence of the main pancreatic duct. 5. Mild scoliosis and degenerative changes of the lumbar spine. Sukh Rivero MD Gall Bladder Ultrasound 05/15/17 0000 Signed Impressions: Service Date/Time: April 19:20 - CONCLUSION: Mild extrahepatic biliary ductal dilatation. Moderate gallbladder distention with stone or wall calcification. Damaso Ragsdale MD Abdomen/Pelvis CT 05/14/17 1916 Signed Impressions: Service Date/Time: Sunday, May 14, 2017 20:42 - CONCLUSION: Inflamed appearance of right lower quadrant bowel structures and surrounding tissues with differential considerations primarily include ileitis, IBD or appendicitis. Mild intra-extrahepatic biliary ductal dilatation and moderate gallbladder distention. No specific etiology identified Damaso Ragsdale MD ADDENDUM: Delayed imaging was obtained. The inflammatory structure in the right lower quadrant appears to be confined to the ileum. There is residual contrast within a tubular structure believed to be the appendix and not involved with inflammatory process. Sal Morton MD Chest X-Ray 05/14/17 0000 Signed Impressions: Service Date/Time: Sunday, May 14, 2017 19:37 - CONCLUSION: No acute disease. Damaso Ragsdale MD Physical Exam HEENT: Normocephalic; atraumatic; no jaundice. CHEST: CTA CARDIAC: RRR. ABDOMEN: Soft, mildly distended, right sided abdominal pain on palpation, no hepatosplenomegaly; bowel sounds are present in all four quadrants. EXTREMITIES: No clubbing, cyanosis, or edema. SKIN: Normal; no rash; no jaundice. MEDIA RELATIONS INTERN: No focal deficits; alert and oriented times three. Assessment and Plan Plan ASSESSMENT: - Abdominal pain with abnormal imaging suspicious for ileitis. Continue to have nausea, no vomiting. Denies abdominal pain today. Pt has had vague GI symptoms x 15-20 years (indigestion, bloating, diarrhea) Reports that these have significant worsened over past month when she relocated to this area. Last colonoscopy 4 years ago in [place] reports unremarkable. CT scan abdomen and pelvis (05/14/17)--Inflamed appearance of RLQ bowel structures and surrounding tissues with differential considerations primarily include ileitis, IBD, or appendicitis. Mild intra- extrahepatic biliary ductal dilatation and moderate gallbladder distention. No specific etiology identified. ADDENDUM: Delayed imaging was obtained. The inflammatory structure in the RLQ appears to be confined to the ileum. There is residual contrast within a tubular structure believed to be the appendix and not involved with inflammatory process. No known fhx of IBD. GS following. C diff negative. Giardia, Cryptosporidium pending. Few loose stools. Levaquin/Flagyl. NPO. EGD/Colonoscopy Friday - Intra-extrahepatic biliary ductal dilatation. LFTs normal. D/W Dr. Silva, who spoke to radiologist, who felt this was more a focal area close to the ampulla and did not feel that MRCP would be beneficial. GB US (05/15/17)--HIDA scan (05/17/17)--Mild extrahepatic biliary ductal dilatation. Moderate gallbladder distention with stone or wall calcification.No evidence of cystic duct or distal common bile duct obstruction. MRCP (05/17/17)--1. Questionable filling defect within the distal common bile duct with minimal dilatation of the extrahepatic biliary system. If there is clinical concern for biliary obstruction, a hepatobiliary scan may be helpful for confirmation. 2. Distended gallbladder with minimal cholelithiasis. 3. 18 mm T2 hyperintensity within the spleen consistent with hemangioma or cyst. 4. Minimal prominence of the main pancreatic duct. 5. Mild scoliosis and degenerative changes of the lumbar spine. Possible EUS - inpatient vs. outpatient. - GERD, Bloating, indigestion. PPI. EGD/Colonoscopy Friday - Leukocytosis, mild. Levaquin, Flagyl. - HTN, Hypothyroidism per attending PLAN:. - EGD/Colonoscopy Friday - Obtain consents - NPO at [facility] - Bowel prep today - Possible ERCP or EUS, inpatient vs. outpatient - PPI - Levaquin/Flagyl - Await rest of stool studies - Monitor labs - has signed off. - Supportive care - Further recommendations to follow based on results of above Patient seen and examined by Dr. Reynolds and myself and this note is written on his behalf. Clau Dunaway May 18, 2017 13:44
[2017-05-18] MEDS ORDERED: POTASSIUM CHLORIDE 25 MEQ EFFERVESCENT TAB PO ONE (15:30)
[2017-05-18] MEDS ORDERED: PEG (High)/E-LYTE SOLN 4000 ML BTL PO ONE (16:00)
[2017-05-18] MEDS ORDERED: INSULIN HUMAN REGULAR 1,000 UNITS/10 ML VIAL SQ PRN (16:15)
[2017-05-18] MEDS ORDERED: LACTATED RINGER'S 1000 ML IV PRN (16:15)
[2017-05-18] MEDS ORDERED: SODIUM CHLORID 0.9% 500 ML IV PRN (16:15)
[2017-05-18] MEDS ORDERED: POVIDONE IODINE 5% (ANTISEPSIS KIT) 4 APPLICATIONS EACH NARE PRN (16:15)
[2017-05-18] MEDS ORDERED: METOPROLOL TARTRATE 25 MG TAB PO PRN (16:15)
[2017-05-18] MEDS ORDERED: CHLORHEXIDINE GLUCONATE 2 % 1 PACK (2 CLOTHS) TOPICAL PRN (16:15)
[2017-05-18 16:36] VITALS: BP 141/75; PULSE 87; RESP 20; TEMP 98.5; O2SAT 97
[2017-05-18] MEDS: POTASSIUM CHLORIDE INJ 30 MEQ in DEXT 5%-NACL 0.9% 1000 ML INJ 1,000 ML IV SCH (17:33)
[2017-05-18] MEDS: POLYETHYLENE GLYCOL 17 GM PKG PO SCH ×3 (17:34→18:48)
[2017-05-18 20:44] VITALS: BP 162/74; PULSE 101; RESP 20; TEMP 97.3; O2SAT 96
[2017-05-18] MEDS ORDERED: BISACODYL EC 5 MG TABEC PO ONE (22:00)
[2017-05-18] MEDS: ACETAMINOPHEN/HYDROcodone 325 MG/5 MG TAB PO PRN (23:06)
[2017-05-19] VITALS (7 sets, daily range): BP systolic 117–165; BP diastolic 60–72; PULSE 74–116; RESP 18; TEMP 97.2–98.9; O2SAT 90–100
[2017-05-19] MEDS: metroNIDAZOLE 500 MG INJ 100 ML IV SCH ×4 (04:55→21:47)
[2017-05-19] MEDS: LEVOTHYROXINE SODIUM 112 MCG TAB PO SCH (04:55)
[2017-05-19] MEDS: ONDANSETRON HCL 4 MG/2 ML VIAL IVP PRN (08:05)
[2017-05-19] MEDS: PANTOPRAZOLE SOD 40 MG DELAYED RELEASE TAB PO SCH (08:10)
[2017-05-19] MEDS: DOCUSATE SODIUM 50 MG/SENNA 8.6 MG TAB PO SCH ×2 (08:10→21:47)
[2017-05-19] MEDS: SODIUM CHLORIDE 0.9% FLUSH 10 ML FLUSH IV FLUSH SCH ×2 (08:10→21:48)
[2017-05-19] MEDS: GABAPENTIN 400 MG CAP PO SCH ×3 (08:10→17:14)
[2017-05-19] MEDS: LOSARTAN 50 MG TAB PO SCH (08:10)
[2017-05-19] MEDS: amLODIPine BESYLATE 5 MG TAB PO SCH (09:00)
--- NOTE | 2017-05-19 09:32 | HHI.PR ---
Subjective Remarks slight nausea resolved even before Zofran is administered + stools from bowel prep still with right quadrant and right lower quadrant abdominal discomfort " very slight, tolerable" Objective Vitals Vital Signs Date Time Temp Pulse Resp B/P (MAP) Pulse Ox O2 Delivery O2 Flow Rate FiO2 05/19/17 05:53 97.2 87 18 117/65 (82) 95 05/19/17 00:00 98.9 80 18 142/62 (88) 97 05/18/17 20:44 97.3 101 20 162/74 (103) 96 05/18/17 16:36 98.5 87 20 141/75 (97) 97 05/18/17 12:09 98.1 82 20 140/67 (91) 98 I/O 05/18/17 05/18/17 05/18/17 05/19/17 05/19/17 05/19/17 07:00 15:00 23:00 07:00 15:00 23:00 Intake Total 250 ml 600 ml 200 ml Balance 250 ml 600 ml 200 ml Intake Oral 0 ml IV Total 250 ml 600 ml 200 ml # Voids 1 10 # Bowel Movements 10 Result Diagram: 05/17/17 1023 05/18/17 0855 Imaging Last Impressions Hepatobiliary Scan Nuclear Medicine 05/17/17 0000 Signed Impressions: Service Date/Time: Wednesday, May 17, 2017 08:35 - CONCLUSION: No evidence of cystic duct or distal common bile duct obstruction. Sukh Rivero MD Cholangiopancreatography MRI 05/17/17 0000 Signed Impressions: Service Date/Time: Wednesday, May 17, 2017 07:45 - CONCLUSION: 1. Questionable filling defect within the distal common bile duct with minimal dilatation of the extrahepatic biliary system. If there is clinical concern for biliary obstruction, a hepatobiliary scan may be helpful for confirmation. 2. Distended gallbladder with minimal cholelithiasis. 3. 18 mm T2 hyperintensity within the spleen consistent with hemangioma or cyst. 4. Minimal prominence of the main pancreatic duct. 5. Mild scoliosis and degenerative changes of the lumbar spine. Sukh Rivero MD Gall Bladder Ultrasound 05/15/17 0000 Signed Impressions: Service Date/Time: April 19:20 - CONCLUSION: Mild extrahepatic biliary ductal dilatation. Moderate gallbladder distention with stone or wall calcification. Damaso Ragsdale MD Abdomen/Pelvis CT 05/14/17 1916 Signed Impressions: Service Date/Time: Sunday, May 14, 2017 20:42 - CONCLUSION: Inflamed appearance of right lower quadrant bowel structures and surrounding tissues with differential considerations primarily include ileitis, IBD or appendicitis. Mild intra-extrahepatic biliary ductal dilatation and moderate gallbladder distention. No specific etiology identified Damaso Ragsdale MD ADDENDUM: Delayed imaging was obtained. The inflammatory structure in the right lower quadrant appears to be confined to the ileum. There is residual contrast within a tubular structure believed to be the appendix and not involved with inflammatory process. Sal Morton MD Chest X-Ray 05/14/17 0000 Signed Impressions: Service Date/Time: Sunday, May 14, 2017 19:37 - CONCLUSION: No acute disease. Damaso Ragsdale MD Objective Remarks awake and alert, weak anicteric lungs clear regular rhythm abdomen- soft, good bowel sounds, very mild tenderness on deep palpation fo right upper quadrant and right lower quadrant area extremities no edema Procedures None A/P Problem List: (1) Ileitis ICD Code: K52.9 - Noninfective gastroenteritis and colitis, unspecified (2) Dehydration ICD Code: E86.0 - Dehydration (3) HTN (hypertension) ICD Code: I10 - Essential (primary) hypertension Assessment and Plan 76-year-old female admitted secondary to abdominal pain Right Right Upper quadrant/lower quadrat pain R/O GB pathology- GB distented with some cholelithiasis CT with possible ilietis reviewed US abdomen- GB distended with small cholelithiasis- GS consulted- no plans for surgery Continue Flagyl and Levaquin GI following- for EGD/colonoscopy possibly ERCP- today Continue as needed pain treatments Continue IV hydration keep NPO Hypertension Continue amlodipine Continue losartan Follow blood pressures Hypokalemia - K in IVF - replaced - BMP stable Hypothyroidism Continue levothyroxine Follows in outpatient Gastroesophageal reflux disease Continue pantoprazole DVT prophylaxis Lovenox seen and discussed with son May 16, 2017 13:23 Nicci Lee MD May 19, 2017 09:32
[2017-05-19] MEDS: POTASSIUM CHLORIDE INJ 30 MEQ in DEXT 5%-NACL 0.9% 1000 ML INJ 1,000 ML IV SCH ×2 (09:50→21:47)
[2017-05-19 09:52] LABS: BICARBONATE 22.9 MEQ/L (21.0-32.0); POTASSIUM 3.7 MEQ/L (3.5-5.1)
[2017-05-19] MEDS: LEVOFLOXACIN 750 MG PREMIX INJ 150 ML IV SCH (10:00)
[2017-05-19] MEDS ORDERED: PROPOFOL 200 MG/20 ML AMP IV ONE (12:00)
[2017-05-19] MEDS ORDERED: LIDOCAINE HCL 1% PF 5 ML AMPULE OTHER ONE (12:00)
--- NOTE | 2017-05-19 12:35 | GIPROC ---
[facility] [address] [facility]. [facility], [address] COLONOSCOPY PROCEDURE REPORT EXAM DATE: 05/19/2017 PATIENT NAME: Deedee Montelongo MR #: [id number] BIRTHDATE: 1940 ENDOSCOPIST: Honey Clements MD ORDER #: [id number] [employer] TE[employer]ER: Juju Garner and Suyapa Wang STATUS: inpatient INDICATIONS: The patient is a 76 yr old female here for a colonoscopy due to abdominal pain, abnormal ct , constipation PROCEDURE PERFORMED: Colonoscopy, diagnostic MEDICATIONS: None and Per Anesthesia. PREP QUALITY: fair PREP TYPE:Other: ESTIMATED BLOOD LOSS: None CONSENT: The patient understands the risks and benefits of the procedure and understands that these risks include, but are not limited to: sedation, allergic reaction, infection, perforation and/or bleeding. Alternative means of evaluation and treatment include, among others: physical exam, x-rays, and/or surgical intervention. The patient elects to proceed with this endoscopic procedure. medical equipment was checked for proper function. Hand hygiene and appropriate measures for infection prevention was taken. After the risks, benefits and alternatives of the procedure were thoroughly explained, Informed consent was verified, confirmed and timeout was successfully executed by the treatment team. A digital exam revealed external hemorrhoids and revealed decreased sphincter tone The Pentax EC-[id number] endoscope was introduced through the anus and advanced to the cecum, which was identified by both the appendix and ileocecal valve. The instrument was then slowly withdrawn as the colon was fully examined. COLON FINDINGS: Diverticulosis ascending colon very long and tortous colon cecum seems to be in ruq - based on transillumination. Retroflexed views revealed internal hemorrhoids and Retroflexed views revealed small internal hemorrhoids The scope was then completely withdrawn from the patient and the procedure terminated. PROCEDURE WITHDRAWAL TIME:6minutes ADVERSE EVENTS: There were no complications. IMPRESSIONS: 1. Diverticulosis ascending colon very long and tortous colon cecum seems to be in ruq - based on transillumination 2. Retroflexed views revealed internal hemorrhoids 3. Retroflexed views revealed small internal hemorrhoids 4. Revealed external hemorrhoids 5. Revealed decreased sphincter tone RECOMMENDATIONS: 1. Benefiber 2 tsp daily 2. High fiber diet 3. Probiotics from any [facility] or health food store RECALL: Return 5 years Colonoscopy Honey Clements MD eSigned: Honey Clements MD 05/19/2017 12:35 PM cc:
--- NOTE | 2017-05-19 12:38 | GIPROC ---
[facility] [address] [facility]. [facility], [address] EGD PROCEDURE REPORT EXAM DATE: 05/19/2017 PATIENT NAME: Deedee Montelongo MR #: [id number] BIRTHDATE: 1940 ATTENDING: Honey Clements MD ORDER #: [id number] MANAGER PHARMACY: Juju Garner and Suyapa Wang STATUS: inpatient INDICATIONS: The patient is a 76 yr old female here for an EGD due to abdominal pain PROCEDURE PERFORMED: EGD w/ biopsy MEDICATIONS: None and Per Anesthesia. TOPICAL ANESTHETIC: none CONSENT: The patient understands the risks and benefits of the procedure and understands that these risks include, but are not limited to: sedation, allergic reaction, infection, perforation and/or bleeding. Alternative means of evaluation and treatment include, among others: physical exam, x-rays, and/or surgical intervention. The patient elects to proceed with this endoscopic procedure. medical equipment was checked for proper function. Hand hygiene and appropriate measures for infection prevention was taken. After the risks, benefits and alternatives of the procedure were thoroughly explained, Informed consent was verified, confirmed and timeout was successfully executed by the treatment team. The patient was anesthetized with topical anesthesia and the [id number] (Pedi C) endoscope was introduced through the mouth and advanced to the second portion of the duodenum. Retroflexed views revealed a hiatal hernia The gastroscope was then slowly withdrawn and removed. Duodenum normal-biopsy to r/o celiac disease gastritis antrum-biopsy esophagitis distal esophagus-biopsy. ADVERSE EVENTS: There were no complications. IMPRESSIONS: 1. Duodenum normal-biopsy to r/o celiac disease gastritis antrum-biopsy esophagitis distal esophagus-biopsy 2. Retroflexed views revealed a hiatal hernia RECOMMENDATIONS: 1. Await biopsy results. Biopsy results will not be ready for 7-10 days. If you don't hear from us in two weeks, call our office for biopsy results. 2. Anti-reflux regimen 3. Continue PPI 4. Avoid NSAIDS 5. ERCP in am if agrees resume diet PATIENT CONDITION: stable DISPOSITION: Inpatient REPEAT EXAM: Return 2 years EGD Honey Clements MD eSigned: Honey Clements MD 05/19/2017 12:37 PM cc: PATIENT NAME: Deedee Montelongo MR#: [id number]
[2017-05-19] MEDS: ENOXAPARIN SODIUM 30 MG/0.3 ML SYRINGE SQ SCH (14:14)
[2017-05-20] VITALS (7 sets, daily range): BP systolic 126–143; BP diastolic 62–84; PULSE 86–115; RESP 16–18; TEMP 97.1–98.6; O2SAT 95–98
[2017-05-20] MEDS: LEVOTHYROXINE SODIUM 112 MCG TAB PO SCH (05:04)
[2017-05-20] MEDS: metroNIDAZOLE 500 MG INJ 100 ML IV SCH ×4 (05:04→22:22)
[2017-05-20] MEDS: SODIUM CHLORIDE 0.9% FLUSH 10 ML FLUSH IV FLUSH SCH ×2 (09:00→22:23)
[2017-05-20] MEDS: amLODIPine BESYLATE 5 MG TAB PO SCH (09:20)
[2017-05-20] MEDS: GABAPENTIN 400 MG CAP PO SCH ×3 (09:20→18:27)
[2017-05-20] MEDS: PANTOPRAZOLE SOD 40 MG DELAYED RELEASE TAB PO SCH (09:20)
[2017-05-20] MEDS: DOCUSATE SODIUM 50 MG/SENNA 8.6 MG TAB PO SCH ×2 (09:20→22:22)
[2017-05-20] MEDS: LOSARTAN 50 MG TAB PO SCH (09:21)
--- NOTE | 2017-05-20 09:30 | HHI.PR ---
Subjective Remarks no complains of abdominal pain, nausea or vomiting + flatus up and ambulated well wanting to go home tolerated po diet Objective Vitals Vital Signs Date Time Temp Pulse Resp B/P (MAP) Pulse Ox O2 Delivery O2 Flow Rate FiO2 05/20/17 04:00 98.2 87 18 128/62 (84) 98 05/20/17 01:17 98.6 86 18 126/84 (98) 95 05/19/17 21:03 98.4 87 18 130/60 (83) 90 05/19/17 20:48 99 05/19/17 16:00 97.4 116 18 136/63 (87) 98 05/19/17 13:23 97.5 74 18 165/72 (103) 100 05/19/17 12:30 97.6 77 16 144/67 (92) 98 I/O 05/19/17 05/19/17 05/19/17 05/20/17 05/20/17 05/20/17 07:00 15:00 23:00 07:00 15:00 23:00 Intake Total 200 ml 500 ml 100 ml 549 ml Balance 200 ml 500 ml 100 ml 549 ml IV Total 200 ml 100 ml 549 ml Other 500 ml # Voids 10 10 # Bowel Movements 10 4 Result Diagram: 05/17/17 1023 05/19/17 0805 Imaging Last Impressions Hepatobiliary Scan Nuclear Medicine 05/17/17 0000 Signed Impressions: Service Date/Time: Wednesday, May 17, 2017 08:35 - CONCLUSION: No evidence of cystic duct or distal common bile duct obstruction. Sukh Rivero MD Cholangiopancreatography MRI 05/17/17 0000 Signed Impressions: Service Date/Time: Wednesday, May 17, 2017 07:45 - CONCLUSION: 1. Questionable filling defect within the distal common bile duct with minimal dilatation of the extrahepatic biliary system. If there is clinical concern for biliary obstruction, a hepatobiliary scan may be helpful for confirmation. 2. Distended gallbladder with minimal cholelithiasis. 3. 18 mm T2 hyperintensity within the spleen consistent with hemangioma or cyst. 4. Minimal prominence of the main pancreatic duct. 5. Mild scoliosis and degenerative changes of the lumbar spine. Sukh Rivero MD Gall Bladder Ultrasound 05/15/17 0000 Signed Impressions: Service Date/Time: April 19:20 - CONCLUSION: Mild extrahepatic biliary ductal dilatation. Moderate gallbladder distention with stone or wall calcification. Damaso Ragsdale MD Abdomen/Pelvis CT 05/14/171915 Signed Impressions: Service Date/Time: Sunday, May 14, 2017 20:42 - CONCLUSION: Inflamed appearance of right lower quadrant bowel structures and surrounding tissues with differential considerations primarily include ileitis, IBD or appendicitis. Mild intra-extrahepatic biliary ductal dilatation and moderate gallbladder distention. No specific etiology identified Damaso Ragsdale MD ADDENDUM: Delayed imaging was obtained. The inflammatory structure in the right lower quadrant appears to be confined to the ileum. There is residual contrast within a tubular structure believed to be the appendix and not involved with inflammatory process. Sal Morton MD Chest X-Ray 05/14/17 Signed Impressions: Service Date/Time: Sunday, May 14, 2017 19:37 - CONCLUSION: No acute disease. Damaso Ragsdale MD Last Impressions Hepatobiliary Scan Nuclear Medicine 05/17/17 0000 Signed Impressions: Service Date/Time: Wednesday, May 17, 2017 08:35 - CONCLUSION: No evidence of cystic duct or distal common bile duct obstruction. Sukh Rievro MD Cholangiopancreatography MRI 05/17/17 0000 Signed Impressions: Service Date/Time: Wednesday, May 17, 2017 07:45 - CONCLUSION: 1. Questionable filling defect within the distal common bile duct with minimal dilatation of the extrahepatic biliary system. If there is clinical concern for biliary obstruction, a hepatobiliary scan may be helpful for confirmation. 2. Distended gallbladder with minimal cholelithiasis. 3. 18 mm T2 hyperintensity within the spleen consistent with hemangioma or cyst. 4. Minimal prominence of the main pancreatic duct. 5. Mild scoliosis and degenerative changes of the lumbar spine. Sukh Rivero MD Gall Bladder Ultrasound 05/15/17 0000 Signed Impressions: Service Date/Time: April 19:20 - CONCLUSION: Mild extrahepatic biliary ductal dilatation. Moderate gallbladder distention with stone or wall calcification. Damaso Ragsdale MD Abdomen/Pelvis CT 05/14/171915 Signed Impressions: Service Date/Time: Sunday, May 14, 2017 20:42 - CONCLUSION: Inflamed appearance of right lower quadrant bowel structures and surrounding tissues with differential considerations primarily include ileitis, IBD or appendicitis. Mild intra-extrahepatic biliary ductal dilatation and moderate gallbladder distention. No specific etiology identified Damaso Ragsdale MD ADDENDUM: Delayed imaging was obtained. The inflammatory structure in the right lower quadrant appears to be confined to the ileum. There is residual contrast within a tubular structure believed to be the appendix and not involved with inflammatory process. Sal Morton MD Chest X-Ray 05/14/17 0000 Signed Impressions: Service Date/Time: Sunday, May 14, 2017 19:37 - CONCLUSION: No acute disease. Damaso Ragsdale MD Objective Remarks awake and alert, feels stronger anicteric lungs clear regular rhythm abdomen- soft, good bowel sounds, n tenderness, no guarding, good bowel sounds extremities no edema Procedures None A/P Problem List: (1) Ileitis ICD Code: K52.9 - Noninfective gastroenteritis and colitis, unspecified (2) Dehydration ICD Code: E86.0 - Dehydration (3) HTN (hypertension) ICD Code: I10 - Essential (primary) hypertension Assessment and Plan 76-year-old female admitted secondary to abdominal pain Right Right Upper quadrant/lower quadrat pain- clincially improved R/O biliary pathology- GB distended with some cholelithiasis CT with possible ilietis S/P EGD- with duodenitis S/P colonoscopy- internal and external hemorrhoids reviewed US abdomen- GB distended with small cholelithiasis- GS consulted- no plans for surgery repeat US today GI planning - evaluating for ERCP today or in am Continue Flagyl and Levaquin- change to po on DC Continue as needed pain treatments Hypertension Continue amlodipine Continue losartan Follow blood pressures Hypokalemia- improved - K in IVF - replaced - BMP stable Hypothyroidism Continue levothyroxine Follows in outpatient Gastroesophageal reflux disease Continue pantoprazole DVT prophylaxis Lovenox s/w GI if no plans for ERCP will DC- Angela May 16, 2017 13:23 Problem Qualifiers (1) HTN (hypertension): Qualified Codes: I10 - Essential (primary) hypertension Nicci Lee MD May 20, 2017 09:30
[2017-05-20] MEDS ORDERED: WHEA1POW9 PO (09:36)
[2017-05-20] MEDS ORDERED: LEVA500T20 PO (09:41)
[2017-05-20] MEDS ORDERED: METR500T10 PO ×2 (09:42)
--- NOTE | 2017-05-20 09:56 | RADRPT ---
EXAM DATE/TIME: 05/20/2017 07:52 [facility] COMPARISON: BILIARY SCAN (HIDA), May 17, 2017, 8:35. MRCP W/O CONTRAST, May 17, 2017, 7:45. US ABDOMEN - GALLBLADDER, May 15, 2017, 19:20. INDICATIONS : F/U dialated CBD. MEDICAL HISTORY : Hypertension. Gastroesophageal reflux disease. Hypothyroidism. Hearing loss. Neuropathy. Osteoarthrit is. SURGICAL HISTORY : Hemorrhoidectomy. Left shoulder surgery. Cataract removal. ENCOUNTER: Subsequent ACUITY: 4-6 days PAIN SCORE: 0/10 LOCATION: Right upper quadrant MEASUREMENTS: LIVER: 15.0 cm length COMMON DUCT: 5 mm (measured 9 mm on ultrasound 05/15/17) RIGHT KIDNEY: 9.6 x 5.1 x 3.6 cm FINDINGS: LIVER: Normal echotexture without focal lesion or ductal dilatation. Hepatopedal flow within the portal vei n. COMMON DUCT: No intraluminal mass or stone visualized. GALLBLADDER: There is some mild echogenic layering material within lumen of the gallbladder which is predominantly non-shadowing, however, a minimal amount of shadowing is discernible on some images. Gallbladder wa ll normal in thickness. PANCREAS: The visualized portions are within normal limits. RIGHT KIDNEY: No evidence of hydronephrosis, stone, or mass. CONCLUSION: 1. The common bile duct on the present scan is normal in dimension and 5 mm. Recent MRCP had demonst rated 8mm dimension and prior ultrasound had demonstrated 9 mm dimension. 2. Mild layering echogenic material within the gallbladder which by sonogram has features suggestive of sludge with a few internal shadowing stones. This is congruous with the appearance on recent MRCP . Jaspal Currie MD on May 20, 2017 at 9:48 Board Certified Radiologist. This report was verified electronically.
[2017-05-20] MEDS: LEVOFLOXACIN 750 MG PREMIX INJ 150 ML IV SCH (10:01)
[2017-05-20] MEDS ORDERED: LIDOCAINE HCL 1% PF 5 ML AMPULE OTHER ONE (12:00)
[2017-05-20] MEDS ORDERED: PROPOFOL 200 MG/20 ML AMP IV ONE (12:00)
[2017-05-20] MEDS ORDERED: MIDAZOLAM HCL 2 MG/2 ML VIAL IV ONE (12:00)
[2017-05-20] MEDS ORDERED: SUCCINYLCHOLINE CHLORIDE 100 MG/5 ML SYRINGE IV PUSH ONE (12:00)
--- NOTE | 2017-05-20 12:24 | HHI.GIFU ---
Subjective Remarks Resting in bed. Still has intermittent nausea, bloating, epigastric discomfort. D/W patient MRCP findings and further evaluation with ERCP- she requested that I return in 30 minutes after her son arrives. I went back and discussed MRCP and possible ERCP- procedure, risks, benefits with patient and son. They would like to proceed. Today if possible. She has not had anything to eat today. (Hannah Dias) Objective Vitals I&O Vital Signs Date Time Temp Pulse Resp B/P (MAP) Pulse Ox O2 Delivery O2 Flow Rate FiO2 05/20/17 10:28 97.1 97 16 133/63 (86) 98 05/20/17 10:09 96 21 05/20/17 04:00 98.2 87 18 128/62 (84) 98 05/20/17 01:17 98.6 86 18 126/84 (98) 95 05/19/17 21:03 98.4 87 18 130/60 (83) 90 05/19/17 20:48 99 05/19/17 16:00 97.4 116 18 136/63 (87) 98 05/19/17 13:23 97.5 74 18 165/72 (103) 100 05/19/17 12:30 97.6 77 16 144/67 (92) 98 I/O 05/19/17 05/19/17 05/19/17 05/20/17 05/20/17 05/20/17 07:00 15:00 23:00 07:00 15:00 23:00 Intake Total 200 ml 500 ml 100 ml 549 ml Balance 200 ml 500 ml 100 ml 549 ml IV Total 200 ml 100 ml 549 ml Other 500 ml # Voids 10 10 # Bowel Movements 10 4 Laboratory Date/Time Source Procedure Growth Status 05/16/17 09:40 Stool Stool Cryptosporidium Exam - Final NEGATIVE - NO CRYPTOSPORIDIUM ANTIGEN... Complete 05/16/17 09:40 Stool Stool Stool Pus ([facility]) - Final NO WBC'S SEEN Complete 05/16/17 09:40 Stool Stool Giardia Antigen ([facility]) - Final NEGATIVE - NO GIARDIA ANTIGEN DETECTE... Complete Imaging Last Impressions Gall Bladder Ultrasound 05/20/17 0000 Signed Impressions: Service Date/Time: Saturday, May 20, 2017 07:52 - CONCLUSION: 1. The common bile duct on the present scan is normal in dimension and 5 mm. Recent MRCP had demonstrated 8mm dimension and prior ultrasound had demonstrated 9 mm dimension. 2. Mild layering echogenic material within the gallbladder which by sonogram has features suggestive of sludge with a few internal shadowing stones. This is congruous with the appearance on recent MRCP. Jaspal Currie MD Hepatobiliary Scan Nuclear Medicine 05/17/17 Signed Impressions: Service Date/Time: Wednesday, May 17, 2017 08:35 - CONCLUSION: No evidence of cystic duct or distal common bile duct obstruction. Sukh Rivero MD Cholangiopancreatography MRI 05/17/17 Signed Impressions: Service Date/Time: Wednesday, May 17, 2017 07:45 - CONCLUSION: 1. Questionable filling defect within the distal common bile duct with minimal dilatation of the extrahepatic biliary system. If there is clinical concern for biliary obstruction, a hepatobiliary scan may be helpful for confirmation. 2. Distended gallbladder with minimal cholelithiasis. 3. 18 mm T2 hyperintensity within the spleen consistent with hemangioma or cyst. 4. Minimal prominence of the main pancreatic duct. 5. Mild scoliosis and degenerative changes of the lumbar spine. Sukh Rivero MD Abdomen/Pelvis CT 05/14/171915 Signed Impressions: Service Date/Time: Sunday, May 14, 2017 20:42 - CONCLUSION: Inflamed appearance of right lower quadrant bowel structures and surrounding tissues with differential considerations primarily include ileitis, IBD or appendicitis. Mild intra-extrahepatic biliary ductal dilatation and moderate gallbladder distention. No specific etiology identified Damaso Ragsdale MD ADDENDUM: Delayed imaging was obtained. The inflammatory structure in the right lower quadrant appears to be confined to the ileum. There is residual contrast within a tubular structure believed to be the appendix and not involved with inflammatory process. Sal Morton MD Chest X-Ray 05/14/17 Signed Impressions: Service Date/Time: Sunday, May 14, 2017 19:37 - CONCLUSION: No acute disease. Damaso Ragsdale MD Physical Exam HEENT: Normocephalic; atraumatic; no jaundice. CHEST: CTA CARDIAC: RRR. ABDOMEN: Soft, mildly distended,nontender, no hepatosplenomegaly; bowel sounds are present in all four quadrants. EXTREMITIES: No clubbing, cyanosis, or edema. SKIN: Normal; no rash; no jaundice. [employer]: No focal deficits; alert and oriented times three. (DiasHannah Carmina [facility]) Assessment and Plan Plan ASSESSMENT: - Abdominal pain with abnormal imaging suspicious for ileitis. Continue to have nausea, no vomiting. Denies abdominal pain today. Pt has had vague GI symptoms x 15-20 years (indigestion, bloating, diarrhea) Reports that these have significant worsened over past month when she relocated to this area. Last colonoscopy 4 years ago in [place] reports unremarkable. CT scan abdomen and pelvis (05/14/17)--Inflamed appearance of RLQ bowel structures and surrounding tissues with differential considerations primarily include ileitis, IBD, or appendicitis. Mild intra- extrahepatic biliary ductal dilatation and moderate gallbladder distention. No specific etiology identified. ADDENDUM: Delayed imaging was obtained. The inflammatory structure in the RLQ appears to be confined to the ileum. There is residual contrast within a tubular structure believed to be the appendix and not involved with inflammatory process. No known fhx of IBD. GS following. C diff negative. Giardia neg, Cryptosporidium negative. Few loose stools. Levaquin/Flagyl. S/P EGD/Colonoscopy (05/19/17)---> 1. Duodenum normal-biopsy to r/o celiac disease, gastritis antrum-biopsy, esophagitis distal esophagus-biopsy, 2. Retroflexed views revealed a hiatal hernia 1. Diverticulosis ascending colon very long and tortous colon cecum seems to be in ruq - based on transillumination 2. Retroflexed views revealed internal hemorrhoids 3. Retroflexed views revealed small internal hemorrhoids 4. Revealed external hemorrhoids 5. Revealed decreased sphincter tone. Abdominal pain improved. - Intra-extrahepatic biliary ductal dilatation. LFTs normal. D/W Dr. Silva, who spoke to radiologist, who felt this was more a focal area close to the ampulla and did not feel that MRCP would be beneficial. GB US (05/15/17)--HIDA scan (05/17/17)--Mild extrahepatic biliary ductal dilatation. Moderate gallbladder distention with stone or wall calcification.No evidence of cystic duct or distal common bile duct obstruction. MRCP (05/17/17)--1. Questionable filling defect within the distal common bile duct with minimal dilatation of the extrahepatic biliary system. If there is clinical concern for biliary obstruction, a hepatobiliary scan may be helpful for confirmation. 2. Distended gallbladder with minimal cholelithiasis. 3. 18 mm T2 hyperintensity within the spleen consistent with hemangioma or cyst. 4. Minimal prominence of the main pancreatic duct. 5. Mild scoliosis and degenerative changes of the lumbar spine. D/W patient and son ERCP, procedure, risks, benefits. They would like to proceed- today if possible. Will make NPO, possible ERCP this afternoon. - GERD, Bloating, indigestion. PPI. - Leukocytosis, mild. Levaquin, Flagyl. - HTN, Hypothyroidism per attending PLAN:. - Possible ERCP with sphincterotomy, possible stent placement this afternoon - Obtain consents - NPO - Hold lovenox - Await pathology - PPI - Levaquin/Flagyl - Supportive care - Further recommendations to follow based on results of above - Patient seen and examined by Dr. Clements and myself and this note is written on her behalf. (Hannah Dias) Hannah Dias May 20, 2017 12:23 Honey Clements MD May 20, 2017 18:42
[2017-05-20] MEDS ORDERED: CHLORHEXIDINE GLUCONATE 2 % 1 PACK (2 CLOTHS) TOPICAL PRN (14:45)
[2017-05-20] MEDS ORDERED: SODIUM CHLORID 0.9% 500 ML IV PRN (14:45)
[2017-05-20] MEDS ORDERED: METOPROLOL TARTRATE 25 MG TAB PO PRN (14:45)
[2017-05-20] MEDS ORDERED: LACTATED RINGER'S 1000 ML IV PRN (14:45)
[2017-05-20] MEDS ORDERED: POVIDONE IODINE 5% (ANTISEPSIS KIT) 4 APPLICATIONS EACH NARE PRN (14:45)
[2017-05-20] MEDS ORDERED: INSULIN HUMAN REGULAR 1,000 UNITS/10 ML VIAL SQ PRN (14:45)
[2017-05-20] MEDS ORDERED: DO NOT ADM ANY ANTICOAGULANT DRUGS PRN (17:27)
[2017-05-20] MEDS ORDERED: *ONDANSETRON 4 MG VIAL PERIprocedural Use ONLY ONE (17:30)
[2017-05-20] MEDS ORDERED: IOHEXOL 350 MG/ML 50 ML BTL (for RAD DIAG) OTHER ONE (17:38)
[2017-05-20] MEDS ORDERED: *morphine SULFATE 8 MG/ML PERIprocedure ONLY ONE (17:50)
--- NOTE | 2017-05-20 17:58 | RADRPT ---
EXAM DATE/TIME: 05/20/2017 17:03 [facility] COMPARISON: No previous studies available for comparison. INDICATIONS : Sphincterotomy, ampulla stricture. FLUORO TIME: 3.31 minutes IMAGE COUNT: 6 CONTRAST: Instilled by Ordering Physician MEDICAL HISTORY : Hypertension. Gastroesophageal reflux disease. Arthritis. SURGICAL HISTORY : None. ENCOUNTER: Subsequent ACUITY: 4 - 6 days PAIN SCORE: Non-responsive. LOCATION: Abdomen. FINDINGS: An ERCP was performed by the ordering physician. The images demonstrate no evidence of common duct stone with filling of the cystic duct and gallbladd er. CONCLUSION: ERCP as above. Jeison Casiano MD on May 20, 2017 at 17:56 Board Certified Radiologist. This report was verified electronically.
--- NOTE | 2017-05-20 18:15 | PD.PROCEDR ---
GI Procedure REFERRING PHYSICIAN Dr. Virk PROCEDURE PERFORMED ERCP with sphincterotomy and balloon extraction and brushing INDICATION FOR PROCEDURE Abnormal imaging showing dilated common bile duct PROCEDURE: The procedure, risks and benefits were discussed with Ms. Montelongo and informed consent was obtained. Anesthesia sedated her with Diprivan. She was placed in the left lateral decubitus position. ERCP: Patient was placed in a prone position. The Pentax videoscope was introduced through the oropharynx and advanced to the second portion of the duodenum where the ampula was identified. 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
[2017-05-20] MEDS: POTASSIUM CHLORIDE INJ 30 MEQ in DEXT 5%-NACL 0.9% 1000 ML INJ 1,000 ML IV SCH (18:27)
[2017-05-20] MEDS ORDERED: *ENALAPRILAT 1.25 MG/ML VIAL PERIprocedural Use ONLY ONE (19:16)
[2017-05-21] VITALS: BP 137/65; PULSE 87; RESP 18; TEMP 97; O2SAT 96
[2017-05-21] MEDS: POTASSIUM CHLORIDE INJ 30 MEQ in DEXT 5%-NACL 0.9% 1000 ML INJ 1,000 ML IV SCH (03:00)
[2017-05-21 04:00] VITALS: BP 150/78; PULSE 104; RESP 18; TEMP 97.3; O2SAT 95
[2017-05-21] MEDS: LEVOTHYROXINE SODIUM 112 MCG TAB PO SCH (05:25)
[2017-05-21] MEDS: metroNIDAZOLE 500 MG INJ 100 ML IV SCH ×2 (05:25→11:38)
--- NOTE | 2017-05-21 08:30 | HHI.DS ---
Discharge Summary Admission Date May 15, 2017 at 13:02 Discharge Date: May 21, 2017 Admitting Diagnosis abdominal pain rule out appendicitis (1) Ileitis ICD Code: K52.9 - Noninfective gastroenteritis and colitis, unspecified (2) Dehydration ICD Code: E86.0 - Dehydration (3) HTN (hypertension) ICD Code: I10 - Essential (primary) hypertension Procedures EGD, colonoscopy, ERCP with sphincterotomy and balloon extraction and brushing Brief History - From Admission This is a 76-year-old female with a PMH of HTN and Hypothyroidism was brought to the ER by family secondary to complaints of abdominal pain or any earlier this morning. States pain located in RUQ and RLQ, associated w/ nausea but no vomiting. Has had few episodes of diarrhea, now resolved. Pt severe w/ movement, ambulation very difficult due to pain. Denies fever or chills. On arrival, BP 136/69, HR 87, O2 sat 99% on RA, Afebrile. WBC 11.4. Chemistry unremarkable except for GFR 72. Lactic Acid normal. 0.0. CXR with no acute findings. CT Abd/Pelvis w/ inflamed appearance right lower quadrant bowel structures and surrounding tissue with differential including ileitis, IBD or appendicitis. Mild intra-and extrahepatic biliary ductal dilatation and moderate gallbladder distention. Dr. Silva consulted by ER physician, plan is for observation and IV Abx, will eval in am, no surgical intervention planned at this time. S/p Zosyn in ER. CBC/BMP: 05/17/17 1023 05/19/17 0805 Significant Findings Laboratory Tests Test 05/18/17 08:55 05/19/17 08:05 Blood Urea Nitrogen 3 MG/DL (7-18) 3 MG/DL (7-18) Random Glucose 116 MG/DL (74-106) 117 MG/DL (74-106) Albumin 3.0 GM/DL (3.4-5.0) Aspartate Amino Transf (AST/SGOT) 14 U/L (15-37) Potassium Level 3.3 MEQ/L (3.5-5.1) Estimat Glomerular Filtration Rate 83 ML/MIN (>89) Imaging Last Impressions Gall Bladder Ultrasound 05/20/17 Signed Impressions: Service Date/Time: Saturday, May 20, 2017 07:52 - CONCLUSION: 1. The common bile duct on the present scan is normal in dimension and 5 mm. Recent MRCP had demonstrated 8mm dimension and prior ultrasound had demonstrated 9 mm dimension. 2. Mild layering echogenic material within the gallbladder which by sonogram has features suggestive of sludge with a few internal shadowing stones. This is congruous with the appearance on recent MRCP. Jaspal Currie MD GI Procedure 05/20/17 Signed Impressions: Service Date/Time: Saturday, May 20, 2017 17:03 - CONCLUSION: ERCP as above. Jeison Casiano MD Hepatobiliary Scan Nuclear Medicine 05/17/17 Signed Impressions: Service Date/Time: Wednesday, May 17, 2017 08:35 - CONCLUSION: No evidence of cystic duct or distal common bile duct obstruction. Sukh Rivero MD Cholangiopancreatography MRI 05/17/17 Signed Impressions: Service Date/Time: Wednesday, May 17, 2017 07:45 - CONCLUSION: 1. Questionable filling defect within the distal common bile duct with minimal dilatation of the extrahepatic biliary system. If there is clinical concern for biliary obstruction, a hepatobiliary scan may be helpful for confirmation. 2. Distended gallbladder with minimal cholelithiasis. 3. 18 mm T2 hyperintensity within the spleen consistent with hemangioma or cyst. 4. Minimal prominence of the main pancreatic duct. 5. Mild scoliosis and degenerative changes of the lumbar spine. Sukh Rivero MD Abdomen/Pelvis CT 05/14/171915 Signed Impressions: Service Date/Time: Sunday, May 14, 2017 20:42 - CONCLUSION: Inflamed appearance of right lower quadrant bowel structures and surrounding tissues with differential considerations primarily include ileitis, IBD or appendicitis. Mild intra-extrahepatic biliary ductal dilatation and moderate gallbladder distention. No specific etiology identified Damaso Ragsdale MD ADDENDUM: Delayed imaging was obtained. The inflammatory structure in the right lower quadrant appears to be confined to the ileum. There is residual contrast within a tubular structure believed to be the appendix and not involved with inflammatory process. Sal Morton MD Chest X-Ray 05/14/17 Signed Impressions: Service Date/Time: Sunday, May 14, 2017 19:37 - CONCLUSION: No acute disease. Damaso Ragsdale MD PE at Discharge awake and alert, feels stronger anicteric lungs clear regular rhythm abdomen- soft, good bowel sounds, n tenderness, no guarding, good bowel sounds extremities no edema Pt update on day of discharge The patient is in bed, she was eating well, no nausea or vomiting. She says she doesn't have any abdominal pain and did not require any pain medications after the procedure. Denies fever or chills, no nausea or vomiting. Cleared by GI for discharge to follow up as outpatient in 2 weeks. She feels comfortable to go home today. Says she is able to walk without problems and she doesn't need physical therapy order nurses, home. Hospital Course 76-year-old female admitted secondary to abdominal pain. The patient presented with right upper quadrant pain gallbladder distended with some cholelithiasis. CT showed possible ileitis. The patient had EGD and colonoscopy by Dr. Clements showed duodenitis and internal/external hemorrhoids. Ultrasound of abdomen showed distended gallbladder small cholelithiasis, renal surgery was consulted and did not recommend surgery. Patient had ERCP with sphincterectomy on by Dr. Whitmore. The patient improved after ERCP. She was able to tolerate food. She was discharged home in stable condition to follow-up as outpatient with PCP and consultants. Right Right Upper quadrant/lower quadrat pain- clincially improved R/O biliary pathology- GB distended with some cholelithiasis CT with possible ilietis S/P EGD-Dr Clements - with duodenitis S/P colonoscopy Dr clements - internal and external hemorrhoids reviewed US abdomen- GB distended with small cholelithiasis- GS consulted- no plans for surgery repeat US today GI consulted and was following, s/p ERCP with sphincterectomy 05/20/[address] Smith Continue Flagyl and Levaquin- change to po on DC Continue as needed pain treatments Hypertension Continue amlodipine Continue losartan Follow blood pressures Hypokalemia- improved - K in IVF - replaced - BMP stable Hypothyroidism Continue levothyroxine Follows in outpatient Gastroesophageal reflux disease Continue pantoprazole DVT prophylaxis Lovenox Pt Condition on Discharge: Stable Discharge Disposition: Discharge Home Discharge Time: > 30 minutes Discharge Instructions DIET: Follow Instructions for: Heart Healthy Diet Speech Therapy-Diet Recommends: Regular Activities you can perform: Weight Bearing as Jonathan Follow up Referrals: Gastroenterology - 2 Weeks with Honey Clements MD PCP Follow-up - 3-5 Days with PCP New Orders: BASIC METABOLIC PROF - 05/22/17 New Medications: Levofloxacin (Levaquin) 500 Mg Tablet 500 MG PO DAILY for Infection for 4 Days, #4 TAB 0 Refills Metronidazole (Metronidazole) 500 Mg Tab 500 MG PO TID for Infection, #15 TAB 0 Refills Wheat Dextrin (Benefiber) 3 Gram/3.8 Gram Powder 3 GM PO DAILY for Hemorrhoids for 10 Days, #30 GM 0 Refills NS Continued Medications: Amlodipine (Amlodipine) 2.5 Mg Tab 2.5 MG PO DAILY for Blood Pressure Management, #30 TAB 0 Refills Gabapentin (Neurontin) 400 Mg Cap 400 MG PO TID, #90 CAP 0 Refills Levothyroxine (Levothyroxine) 112 Mcg Tab 112 MCG PO DAILY for Thyroid, #30 TAB 0 Refills Losartan (Losartan) 100 Mg Tab 100 MG PO DAILY for Blood Pressure Management, #30 TAB 0 Refills Discontinued Medications: Diclofenac Sodium DR (Diclofenac Sodium DR) 50 Mg Tabdr 50 MG PO BID, #60 TAB 0 Refills Ibuprofen (Motrin Ib) 200 Mg Tablet Ellen Chandler MD May 21, 2017 08:30
[2017-05-21 08:48] VITALS: BP 140/65; PULSE 106; RESP 18; TEMP 98.4; O2SAT 96
[2017-05-21] MEDS: SODIUM CHLORIDE 0.9% FLUSH 10 ML FLUSH IV FLUSH SCH (09:00)
[2017-05-21] MEDS: DOCUSATE SODIUM 50 MG/SENNA 8.6 MG TAB PO SCH (09:05)
[2017-05-21] MEDS: PANTOPRAZOLE SOD 40 MG DELAYED RELEASE TAB PO SCH (09:05)
[2017-05-21] MEDS: amLODIPine BESYLATE 5 MG TAB PO SCH (09:05)
[2017-05-21] MEDS: GABAPENTIN 400 MG CAP PO SCH (09:05)
[2017-05-21] MEDS: LOSARTAN 50 MG TAB PO SCH (09:05)
[2017-05-21 09:34] LABS: HEMATOCRIT 35.2 % (35.0-46.0); MEAN CELL VOLUME 98.4 FL (80.0-100.0); MEAN CORPUSCULAR HEMOGLOBIN 33.5 PG (27.0-34.0); MEAN CORPUSCULAR HGB CONC 34.1 % (32.0-36.0); PLATELET COUNT 291 TH/MM3 (150-450); RED BLOOD COUNT 3.58 MIL/MM3 (4.00-5.30); RED CELL DISTRIBUTION WIDTH 13.2 % (11.6-17.2); REVIEW FLAG FINAL; WHITE BLOOD COUNT 7.1 TH/MM3 (4.0-11.0)
[2017-05-21] MEDS: LEVOFLOXACIN 750 MG PREMIX INJ 150 ML IV SCH (09:45)
[2017-05-21 09:58] LABS: ANION GAP 8 MEQ/L (5-15); AST (GOT) 14 U/L (15-37); BICARBONATE 23.6 MEQ/L (21.0-32.0); BLOOD UREA NITROGEN 5 MG/DL (7-18); CHLORIDE 108 MEQ/L (98-107); GLOMERULAR FILTRATION RATE 86 ML/MIN (>89); POTASSIUM 3.6 MEQ/L (3.5-5.1); SODIUM (NA) 140 MEQ/L (136-145)
[2017-05-21 10:04] LABS: ALKALINE PHOSPHATASE 52 U/L (45-117); ALT (GPT) 16 U/L (10-53); TOTAL BILIRUBIN ADULT 0.3 MG/DL (0.2-1.0)
--- NOTE | 2017-05-21 10:32 | HHI.GIFU ---
Subjective Remarks Resting in bed. Tolerating diet. No abdominal pain. No fever, chills, nausea , vomiting. (Hannah Dias) Objective Vitals I&O Vital Signs Date Time Temp Pulse Resp B/P (MAP) Pulse Ox O2 Delivery O2 Flow Rate FiO2 05/21/17 08:48 98.4 106 18 140/65 (90) 96 05/21/17 04:00 97.3 104 18 150/78 (102) 95 05/21/17 00:00 97.0 87 18 137/65 (89) 96 05/20/17 20:00 97.2 92 18 142/67 (92) 96 05/20/17 18:35 97.8 115 16 134/70 (91) 98 05/20/17 18:00 89 15 135/66 (89) 98 Room Air 05/20/17 17:50 93 15 139/65 (89) 99 Room Air 05/20/17 17:28 98.2 86 20 124/62 (82) 100 Nasal Cannula 2 05/20/17 12:38 97.7 97 18 143/73 (96) 98 05/20/17 10:28 97.1 97 16 133/63 (86) 98 I/O 05/20/17 05/20/17 05/20/17 05/21/17 05/21/17 05/21/17 07:00 15:00 23:00 07:00 15:00 23:00 Intake Total 549 ml 250 ml 937 ml Output Total 600 ml Balance 549 ml 250 ml 337 ml IV Total 549 ml 250 ml 687 ml Other 250 ml Output Urine Total 600 ml # Voids 10 5 # Bowel Movements 4 Laboratory Laboratory Tests Test 05/21/17 08:12 White Blood Count 7.1 Red Blood Count 3.58 Hemoglobin 12.0 Hematocrit 35.2 Mean Corpuscular Volume 98.4 Mean Corpuscular Hemoglobin 33.5 Mean Corpuscular Hemoglobin Concent 34.1 Red Cell Distribution Width 13.2 Platelet Count 291 Mean Platelet Volume 8.3 Blood Urea Nitrogen 5 Creatinine 0.67 Random Glucose 108 Total Protein 6.3 Albumin 3.0 Calcium Level 9.1 Alkaline Phosphatase 52 Aspartate Amino Transf (AST/SGOT) 14 Alanine Aminotransferase (ALT/SGPT) 16 Total Bilirubin 0.3 Sodium Level 140 Potassium Level 3.6 Chloride Level 108 Carbon Dioxide Level 23.6 Anion Gap 8 Estimat Glomerular Filtration Rate 86 Date/Time Source Procedure Growth Status 05/16/17 09:40 Stool Stool Cryptosporidium Exam - Final NEGATIVE - NO CRYPTOSPORIDIUM ANTIGEN... Complete 05/16/17 09:40 Stool Stool Stool Pus ([facility]) - Final NO WBC'S SEEN Complete 05/16/17 09:40 Stool Stool Giardia Antigen ([facility]) - Final NEGATIVE - NO GIARDIA ANTIGEN DETECTE... Complete Imaging Last Impressions Gall Bladder Ultrasound 05/20/17 0000 Signed Impressions: Service Date/Time: Saturday, May 20, 2017 07:52 - CONCLUSION: 1. The common bile duct on the present scan is normal in dimension and 5 mm. Recent MRCP had demonstrated 8mm dimension and prior ultrasound had demonstrated 9 mm dimension. 2. Mild layering echogenic material within the gallbladder which by sonogram has features suggestive of sludge with a few internal shadowing stones. This is congruous with the appearance on recent MRCP. Jaspal Currie MD GI Procedure 05/20/17 0000 Signed Impressions: Service Date/Time: Saturday, May 20, 2017 17:03 - CONCLUSION: ERCP as above. Jeison Casiano MD Hepatobiliary Scan Nuclear Medicine 05/17/17 0000 Signed Impressions: Service Date/Time: Wednesday, May 17, 2017 08:35 - CONCLUSION: No evidence of cystic duct or distal common bile duct obstruction. Sukh Rivero MD Cholangiopancreatography MRI 05/17/17 0000 Signed Impressions: Service Date/Time: Wednesday, May 17, 2017 07:45 - CONCLUSION: 1. Questionable filling defect within the distal common bile duct with minimal dilatation of the extrahepatic biliary system. If there is clinical concern for biliary obstruction, a hepatobiliary scan may be helpful for confirmation. 2. Distended gallbladder with minimal cholelithiasis. 3. 18 mm T2 hyperintensity within the spleen consistent with hemangioma or cyst. 4. Minimal prominence of the main pancreatic duct. 5. Mild scoliosis and degenerative changes of the lumbar spine. Sukh Rivero MD Abdomen/Pelvis CT 05/14/171915 Signed Impressions: Service Date/Time: Sunday, May 14, 2017 20:42 - CONCLUSION: Inflamed appearance of right lower quadrant bowel structures and surrounding tissues with differential considerations primarily include ileitis, IBD or appendicitis. Mild intra-extrahepatic biliary ductal dilatation and moderate gallbladder distention. No specific etiology identified Damaso Ragsdale MD ADDENDUM: Delayed imaging was obtained. The inflammatory structure in the right lower quadrant appears to be confined to the ileum. There is residual contrast within a tubular structure believed to be the appendix and not involved with inflammatory process. Sal Morton MD Chest X-Ray 05/14/17 0000 Signed Impressions: Service Date/Time: Sunday, May 14, 2017 19:37 - CONCLUSION: No acute disease. Damaso Ragsdale MD Physical Exam HEENT: Normocephalic; atraumatic; no jaundice. CHEST: CTA CARDIAC: RRR. ABDOMEN: Soft, mildly distended,nontender, no hepatosplenomegaly; bowel sounds are present in all four quadrants. EXTREMITIES: No clubbing, cyanosis, or edema. SKIN: Normal; no rash; no jaundice. PLATE GRINDER: No focal deficits; alert and oriented times three. (Hannah DiasP) Assessment and Plan Plan ASSESSMENT: - Abdominal pain with abnormal imaging suspicious for ileitis. Continue to have nausea, no vomiting. Denies abdominal pain today. Pt has had vague GI symptoms x 15-20 years (indigestion, bloating, diarrhea) Reports that these have significant worsened over past month when she relocated to this area. Last colonoscopy 4 years ago in [place] reports unremarkable. CT scan abdomen and pelvis (05/14/17)--Inflamed appearance of RLQ bowel structures and surrounding tissues with differential considerations primarily include ileitis, IBD, or appendicitis. Mild intra-extrahepatic biliary ductal dilatation and moderate gallbladder distention. No specific etiology identified. ADDENDUM: Delayed imaging was obtained. The inflammatory structure in the RLQ appears to be confined to the ileum. There is residual contrast within a tubular structure believed to be the appendix and not involved with inflammatory process. No known fhx of IBD. GS following. C diff negative. Giardia neg, Cryptosporidium negative. IMPROVED. S/P EGD/Colonoscopy (05/19/17)---> 1. Duodenum normal-biopsy to r/o celiac disease, gastritis antrum-biopsy, esophagitis distal esophagus-biopsy, 2. Retroflexed views revealed a hiatal hernia 1. Diverticulosis ascending colon very long and tortous colon cecum seems to be in ruq - based on transillumination 2. Retroflexed views revealed internal hemorrhoids 3. Retroflexed views revealed small internal hemorrhoids 4. Revealed external hemorrhoids 5. Revealed decreased sphincter tone. Abdominal pain RESOLVED. Levaquin, Flagyl. - Intra-extrahepatic biliary ductal dilatation. LFTs normal. D/W Dr. Silva, who spoke to radiologist, who felt this was more a focal area close to the ampulla and did not feel that MRCP would be beneficial. GB US (05/15/17)--HIDA scan (05/17/17)--Mild extrahepatic biliary ductal dilatation. Moderate gallbladder distention with stone or wall calcification.No evidence of cystic duct or distal common bile duct obstruction. MRCP (05/17/17)--1. Questionable filling defect within the distal common bile duct with minimal dilatation of the extrahepatic biliary system. If there is clinical concern for biliary obstruction, a hepatobiliary scan may be helpful for confirmation. 2. Distended gallbladder with minimal cholelithiasis. 3. 18 mm T2 hyperintensity within the spleen consistent with hemangioma or cyst. 4. Minimal prominence of the main pancreatic duct. 5. Mild scoliosis and degenerative changes of the lumbar spine. 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 Pathology pending. - GERD, Bloating, indigestion. PPI. - Leukocytosis, mild. Levaquin, Flagyl. - HTN, Hypothyroidism per attending PLAN: - Okay to d/c home from GI standpoint - Await pathology - JOSE - PPI - ALVARO 2 weeks - Patient seen and examined by Dr. Clements and myself and this note is written on her behalf. (Hannah Dias) Hannah Dias May 21, 2017 10:32 Honey Clements MD May 21, 2017 20:01
[2017-05-22] MEDS ORDERED: NEUR400C PO (12:59)
== END 2017-05-21 13:12 | disposition home or self-care (01) | DRG 391 ==
LOC: NEPC 18:44 → NEDA 22:12 → INTOOBSV 22:15 → OBSVTOIN 22:15 → NEPHCDU 23:00 → OBSVTOIN 05-15 13:02 → N05A 05-16 17:16
PROVIDERS: ADMIT Hospitalist; ATTEND Hospitalist
PROC: 0DB68ZX Excision of Stomach, Via Natural or Artificial Opening Endoscopic, Diagnostic (ICD-10-PCS; 2017-05-19)
PROC: 0DB38ZX Excision of Lower Esophagus, Via Natural or Artificial Opening Endoscopic, Diagnostic (ICD-10-PCS; 2017-05-19)
PROC: 0DJD8ZZ Inspection of Lower Intestinal Tract, Via Natural or Artificial Opening Endoscopic (ICD-10-PCS; principal; 2017-05-19 11:30)
PROC: 0DB98ZX Excision of Duodenum, Via Natural or Artificial Opening Endoscopic, Diagnostic (ICD-10-PCS; 2017-05-19 11:30)
PROC: 0F798ZZ Dilation of Common Bile Duct, Via Natural or Artificial Opening Endoscopic (ICD-10-PCS; 2017-05-20)
PROC: BF111ZZ Fluoroscopy of Biliary and Pancreatic Ducts using Low Osmolar Contrast (ICD-10-PCS; 2017-05-20)
DX: K52.9 Noninfective gastroenteritis and colitis, unspecified (principal); K83.1 Obstruction of bile duct; G62.9 Polyneuropathy, unspecified; K80.20 Calculus of gallbladder without cholecystitis without obstruction; E86.0 Dehydration; I10 Essential (primary) hypertension; E03.9 Hypothyroidism, unspecified; E87.6 Hypokalemia; K21.9 Gastro-esophageal reflux disease without esophagitis; K64.8 Other hemorrhoids; K57.90 Diverticulosis of intestine, part unspecified, without perforation or abscess without bleeding; K29.70 Gastritis, unspecified, without bleeding; K20.9 Esophagitis, unspecified; K44.9 Diaphragmatic hernia without obstruction or gangrene
CPT/HCPCS: 71010; 74177; 74181; 74330; 76377; 76705; 76937; 78226; 80048; 80053; 81001; 83605; 83690; 83735; 85025; 85027; 85610; 85730; 87205; 87328; 87329; 87493; 87506; 88305; 88312; 93005; 96361; 96374; 96375; 96376; J1170; A9537; C1769; G0378; J0330; J1650; J1956; J2250; J2270; J2405; J2543; J3010; J3480; J7030; J7042; J7120; Q9963; Q9967

== ENCOUNTER → 2017-10-01 | Outpatient (CLI) | payer MEDICARE ==
[~2017-10-01] MED LIST changes: +BALANCED SALT SOLN OPHT IRRIG 15 ML BTL ONE; +COLA100C5 PO; +DICL1KIT5 TOPICAL; -DICL50TA3 PO; +GABA300C5 PO; +HYPROMELLOSE 0.3 % OPTH GEL 10 GM (0.34 FL OZ) TUBE ONE; -IBUP-1129; +LEVO100T5 PO; -LEVO112T2 PO; -NEUR400C PO; +PHENYLEPHRINE HCL 2.5% OPTH SOLN 2 ML BTL ONE; +PROPARACAINE HCL 0.5% OPHT SOLN 15 ML BTL ONE; +RANI150T PO; +TROPICAMIDE 1% OPHT SOLN 15 ML BTL ONE; +WHEA1POW9 PO
== END ==
LOC: PHSDC 11:09
PROVIDERS: ATTEND Ophthalmology
DX: H26.491 Other secondary cataract, right eye (principal)